=== PATIENT | male | born 1945 | race Caucasian/White ===

== ENCOUNTER 2023-10-15 16:14 | Inpatient (IN) | payer OTHER, MEDICARE ==
--- NOTE | 2023-10-15 17:06 | ED ---
General Adult HPI - General Source: patient Mode of arrival: ambulatory Limitations: no limitations <Lorena Ramos - Last Filed: 10/15/23 17:05> <Ryan Garcia - Last Filed: 10/15/23 23:57> - General Chief complaint: Recheck/Abnormal Lab/Rx Stated complaint: Rectal pain Time Seen by Provider: 10/15/23 17:05 - History of Present Illness Initial comments: The patient is a 77-year-old gentleman who presents to emergency room with complaint of rectal pain. Patient denies any known hemorrhoids. Denies any rectal bleeding. (Lorena Ramos) 77-year-old male presenting to the ED with a chief complaint of rectal pain. Patient states that his head pain around his rectum for the past 2 days. Since onset, states worsening in severity. Denies urinary symptoms. Denies changes in bowel habits. Denies abdominal pain. No fever or chills. No chest pain or shortness of breath. No other complaints. (Ryan Garcia) - Related Data Allergies Allergy/AdvReac Type Severity Reaction Status Date / Time No Known Allergies Allergy Verified 10/15/23 16:42 Review of Systems ROS Other: All systems not noted in ROS Statement are negative. <Lorena Ramos - Last Filed: 10/15/23 17:05> ROS Other: All systems not noted in ROS Statement are negative. <Ryan Garcia - Last Filed: 10/15/23 23:57> ROS Statement: Those systems with pertinent positive or pertinent negative responses have been documented in the HPI. Past Medical History Past Medical History: Hypertension, Myocardial Infarction ([place]) Additional Past Medical History / Comment(s): high cholestrol, GI issues History of Any Multi-Drug Resistant Organisms: None Reported Past Surgical History: Orthopedic Surgery Additional Past Surgical History / Comment(s): Cardiac Bypass Past Psychological History: No Psychological Hx Reported Smoking Status: Never smoker Past Alcohol Use History: None Reported Past Drug Use History: None Reported <Lorena Ramos - Last Filed: 10/15/23 17:05> General Exam Limitations: no limitations <Lorena Ramos - Last Filed: 10/15/23 17:05> General appearance: alert, in no apparent distress Eye exam: Present: normal appearance Neck exam: Present: normal inspection Respiratory exam: Present: normal lung sounds bilaterally Cardiovascular Exam: Present: regular rate, normal rhythm GI/Abdominal exam: Present: soft Rectal exam: Present: other (Perianal abscess) Back exam: Present: normal inspection Neurological exam: Present: alert, oriented X3 Skin exam: Present: warm, dry <Ryan Garcia - Last Filed: 10/15/23 23:57> - General Exam Comments Initial Comments: Visual Physical Exam Vital signs reviewed General: Well-appearing, nontoxic, no acute distress. Head: Normocephalic, atraumatic Eyes: PERRLA, EOMI ENT: Airway patent Chest: Nonlabored breathing Skin: No visual rash, normal skin tone Neuro: Alert and oriented 3 Musculoskeletal: No gross abnormalities (Lorena Ramos) Course Vital Signs 10/15/23 16:38 Temperature 97.7 F Pulse Rate 103 H Respiratory 16 Rate Blood Pressure 160/87 O2 Sat by Pulse 98 Oximetry Procedures - Incision & Drainage Consent Obtained: verbal consent Site: buttock Anesthetic Used: lidocaine 1%, with epi Amount (mLs): 3 I&D Cleaning Method: Chloroprep Sterile Field Used?: Yes Scalpel Used: #11 Irrigation Performed?: Yes I&D Drainage Obtained: Blood Culture Obtained?: Yes Patient Tolerated Procedure: well, no complications <Ryan Garcia - Last Filed: 10/15/23 23:57> Medical Decision Making <Lorena Ramos - Last Filed: 10/15/23 17:05> - Lab Data Result diagrams: 10/15/23 17:06 10/15/23 17:06 <Ryan Garcia - Last Filed: 10/15/23 23:57> - Medical Decision Making Quick note portion completed by myself, Lorena Ramos PA-C (Lorena Ramos) Was pt. sent in by a medical professional or institution ([facility], FOUNDER / CEO, urgent care, hospital, or [place] health care facility...) When possible be specific @ -No Did you speak to anyone other than the patient for history (EMS, parent, family, police, friend...)? What history was obtained from this source @ -No Did you review nursing and triage notes (agree or disagree)? Why? @ -I reviewed and agree with nursing and triage notes Were old charts reviewed (outside hosp., previous admission, EMS record, old EKG, old radiological studies, urgent care reports/EKG's, [place] health care facility records)? Report findings @ -No old charts were reviewed Differential Diagnosis (chest pain, altered mental status, abdominal pain women, abdominal pain men, vaginal bleeding, weakness, fever, dyspnea, syncope, headache, dizziness, GI bleed, back pain, seizure, CVA, palpatations, mental health, musculoskeletal)? @ -Differential Fever: Pneumonia, viral URI, endocarditis, myocarditis, pericarditis, otitis, sinusitis , peritonsillar Abscess, retropharyngeal Abscess, epiglottitis, peritonitis, appendicitis, Ninfa cystitis, diverticulitis, hepatitis, colitis, UTI, PID, TOA, pyelonephritis, prostatitis, epididymitis, meningitis, encephalitis, pulmonary embolism, CVA, thyroid storm, pancreatitis, adrenal crisis, cavernous sinus thrombosis, this is not meant to be an all-inclusive list. EKG interpreted by me (3pts min.). @ -As above X-rays interpreted by me (1pt min.). @ -None done CT interpreted by me (1pt min.). @ -CT abdomen and pelvis revealed findings consistent with abscess in the region of the lower rectum/anus without any other acute findings. U/S interpreted by me (1pt. min.). @ -None done What testing was considered but not performed or refused? (CT, X-rays, U/S, labs)? Why? @ -None What meds were considered but not given or refused? Why? @ -None Did you discuss the management of the patient with other professionals (professionals i.e. , PA, FOUNDER / CEO, lab, RT, psych nurse, social worker psychiatric, pot puller, teacher, marketing officer, returned case inspector)? Give summary @ -Case discussed with Dr. Pereira, accepts admission with consult to surgery. Case discussed with Dr. Hill rises local anesthesia and lancing bedside. Will be on consult. Was smoking cessation discussed for >3mins.? @ -No Was critical care preformed (if so, how long)? @ -Yes, 15 minutes Were there social determinants of health that impacted care today? How? (Ho melessness, low income, unemployed, alcoholism, drug addiction, transportation, low edu. Level, literacy, decrease access to med. care, residential, rehab)? @ -No Was there de-escalation of care discussed even if they declined (Discuss DNR or withdrawal of care, Hospice)? DNR status @ -No What co-morbidities impacted this encounter? (DM, HTN, Smoking, COPD, CAD, Cancer, CVA, ARF, Chemo, Hep., AIDS, mental health diagnosis, sleep apnea, morbid obesity)? @ -None Was patient admitted / discharged? Hospital course, mention meds given and route, prescriptions, significant lab abnormalities, going to OR and other pertinent info. @ -Admission 77-year-old male presenting to the ED with chief complaint of rectal pain for the last 2 days. Exam shows perianal abscess approximately 2 cm. Laboratory studies reviewed. CBC significant for elevated white blood cell count at 18.3. Neutrophils at 14.7. History panel unremarkable. Troponin less than 0.012. Lactic acid 1.2. UA unremarkable. CT abdomen and pelvis with contrast showed mild soft tissue thickening asymmetric to the left in the region of the lower rectum otherwise no acute findings. This was lanced the bedside. Culture obtained. Noted to be tachycardic with a white count of 18.3. Patient does meet sepsis criteria. Calculated ideal body weight 75 kg, adjusted body weight 81 kg. Provided 2 L bolus and started on maintenance fluids. Cultures obtained. Initiated IV antibiotics in the ED. Patient will be admitted to medicine with consult to surgery. Undiagnosed new problem with uncertain prognosis? @ -No Drug Therapy requiring intensive monitoring for toxicity (Heparin, Nitro, Insulin, Cardizem)? @ -No Were any procedures done? @ -Yes Diagnosis/symptom? @ -Perianal abscess, sepsis Acute, or Chronic, or Acute on Chronic? @ -Acute Uncomplicated (without systemic symptoms) or Complicated (systemic symptoms)? @ -Complicated Side effects of treatment? @ -No Exacerbation, Progression, or Severe Exacerbation? @ -No Poses a threat to life or bodily function? How? (Chest pain, [place], [place], pneumonia, PE, COPD, DKA, ARF, appy, cholecystitis, CVA, Diverticulitis, Homicidal, Suicidal, threat to staff... and all critical care pts) @ -Yes, Sepsis (Ryan Garcia) - Lab Data Lab Results 10/15/23 10/15/23 10/15/23 Range/Units 17:06 17:06 17:06 WBC 18.3 H (3.8-10.6) k/uL RBC 5.10 (4.30-5.90) m/uL Hgb 15.5 (13.0-17.5) gm/dL Hct 45.7 (39.0-53.0) % MCV 89.6 (80.0-100.0) fL MCH 30.4 (25.0-35.0) pg MCHC 33.9 (31.0-37.0) g/dL RDW 12.5 (11.5-15.5) % Plt Count 251 (150-450) k/uL MPV 8.2 Neutrophils % 80 % Lymphocytes % 10 % Monocytes % 7 % Eosinophils % 1 % Basophils % 0 % Neutrophils # 14.7 H (1.3-7.7) k/uL Lymphocytes # 1.9 (1.0-4.8) k/uL Monocytes # 1.3 H (0-1.0) k/uL Eosinophils # 0.2 (0-0.7) k/uL Basophils # 0.1 (0-0.2) k/uL PT (10.0-12.5) sec INR (<1.2) APTT (22.0-30.0) sec Sodium 135 L (137-145) mmol/L Potassium 3.6 (3.5-5.1) mmol/L Chloride 98 (98-107) mmol/L Carbon Dioxide 20 L (22-30) mmol/L Anion Gap 17 mmol/L BUN 9 (9-20) mg/dL Creatinine 1.03 (0.66-1.25) mg/dL Est GFR (CKD-EPI)AfAm 82 (>60 ml/min/1.73 sqM) Est GFR (CKD-EPI)NonAf 71 (>60 ml/min/1.73 sqM) Glucose 97 (74-99) mg/dL Plasma Lactic Acid [place] (0.7-2.0) mmol/L Calcium 9.2 (8.4-10.2) mg/dL Total Bilirubin 1.5 H (0.2-1.3) mg/dL AST 31 (17-59) U/L ALT 43 (4-49) U/L Alkaline Phosphatase 70 (38-126) U/L Troponin I (0.000-0.034) ng/mL Total Protein 7.6 (6.3-8.2) g/dL Albumin 4.6 (3.5-5.0) g/dL Urine Color Yellow Urine Appearance Clear (Clear) Urine pH 5.5 (5.0-8.0) Ur Specific [place] 1.021 (1.001-1.035) Urine Protein 1+ H (Negative) Urine Glucose (UA) Negative (Negative) Urine Ketones 1+ H (Negative) Urine Blood Negative (Negative) Urine Nitrite Negative (Negative) Urine Bilirubin Negative (Negative) Urine Urobilinogen 2.0 (<2.0) mg/dL Ur Leukocyte Esterase Negative (Negative) Urine RBC 1 (0-5) /hpf Urine WBC 1 (0-5) /hpf Hyaline Casts 1 (0-2) /lpf Urine Mucus Moderate H (None) /hpf 10/15/23 10/15/23 10/15/23 Range/Units 21:23 21:23 21:23 WBC (3.8-10.6) k/uL RBC (4.30-5.90) m/uL Hgb (13.0-17.5) gm/dL Hct (39.0-53.0) % MCV (80.0-100.0) fL MCH (25.0-35.0) pg MCHC (31.0-37.0) g/dL RDW (11.5-15.5) % Plt Count (150-450) k/uL MPV Neutrophils % % Lymphocytes % % Monocytes % % Eosinophils % % Basophils % % Neutrophils # (1.3-7.7) k/uL Lymphocytes # (1.0-4.8) k/uL Monocytes # (0-1.0) k/uL Eosinophils # (0-0.7) k/uL Basophils # (0-0.2) k/uL PT 10.9 (10.0-12.5) sec INR 1.0 (<1.2) APTT 22.7 (22.0-30.0) sec Sodium (137-145) mmol/L Potassium (3.5-5.1) mmol/L Chloride (98-107) mmol/L Carbon Dioxide (22-30) mmol/L Anion Gap mmol/L BUN (9-20) mg/dL Creatinine (0.66-1.25) mg/dL Est GFR (CKD-EPI)AfAm (>60 ml/min/1.73 sqM) Est GFR (CKD-EPI)NonAf (>60 ml/min/1.73 sqM) Glucose (74-99) mg/dL Plasma Lactic Acid [place] 1.2 (0.7-2.0) mmol/L Calcium (8.4-10.2) mg/dL Total Bilirubin (0.2-1.3) mg/dL AST (17-59) U/L ALT (4-49) U/L Alkaline Phosphatase (38-126) U/L Troponin I <0.012 (0.000-0.034) ng/mL Total Protein (6.3-8.2) g/dL Albumin (3.5-5.0) g/dL Urine Color Urine Appearance (Clear) Urine pH (5.0-8.0) Ur Specific [place] (1.001-1.035) Urine Protein (Negative) Urine Glucose (UA) (Negative) Urine Ketones (Negative) Urine Blood (Negative) Urine Nitrite (Negative) Urine Bilirubin (Negative) Urine Urobilinogen (<2.0) mg/dL Ur Leukocyte Esterase (Negative) Urine RBC (0-5) /hpf Urine WBC (0-5) /hpf Hyaline Casts (0-2) /lpf Urine Mucus (None) /hpf - EKG Data EKG Comments: AG shows a sinus rhythm with nonspecific ST and T-wave changes at 87 bpm. KS 143, QRS 146, QT/QTc 375/419. (Ryan Garcia) Critical Care Time Critical Care Time: Yes Total Critical Care Time: 15 <Ryan Garcia - Last Filed: 10/15/23 23:57> Disposition <Lorena Ramos - Last Filed: 10/15/23 17:05> <Ryan Garcia - Last Filed: 10/15/23 23:57> Clinical Impression: Perianal abscess Dis[facility] Condition: Good Referrals: None,Stated [Primary Care Provider] - 1-2 days
[2023-10-15 17:51] LABS: Basophils # (A) 0.1 k/uL (0-0.2); Basophils % (A) 0 %; Eosinophils # (A) 0.2 k/uL (0-0.7); Eosinophils % (A) 1 %; HCT 45.7 % (39.0-53.0); HGB 15.5 gm/dL (13.0-17.5); Lymphocytes # (A) 1.9 k/uL (1.0-4.8); Lymphocytes % (A) 10 %; MCH 30.4 pg (25.0-35.0); MCHC 33.9 g/dL (31.0-37.0); MCV 89.6 fL (80.0-100.0); Mean Platelet Volume 8.2; Monocytes # (A) 1.3 k/uL (0-1.0); Monocytes % (A) 7 %; Neutrophils # (A) 14.7 k/uL (1.3-7.7); Neutrophils % (A) 80 %; Platelet Count 251 k/uL (150-450); RDW 12.5 % (11.5-15.5); WBC 18.3 k/uL (3.8-10.6)
[2023-10-15 17:57] LABS: Appearance,Urine Clear (Clear); Bilirubin,Urine Negative (Negative); Blood,Urine Negative (Negative); Color,Urine Yellow; Glucose,Urine (UA) Negative (Negative); Hyaline Casts,Urine 1 /lpf (0-2); Ketones,Urine 1+ (Negative); Leukocyte Esterase,Urine Negative (Negative); Mucus,Urine Moderate /hpf; Nitrite,Urine Negative (Negative); PH, Urine 5.5 (5.0-8.0); Protein,Urine 1+ (Negative); RBC,Urine 1 /hpf (0-5); Specific Gravity,Urine 1.021 (1.001-1.035); WBC,Urine 1 /hpf (0-5)
[2023-10-15 18:06] LABS: ALT 43 U/L (4-49); AST 31 U/L (17-59); African American GFR (CKD) 82 (>60 ml/min/1.73 sqM); Albumin 4.6 g/dL (3.5-5.0); Alkaline Phosphatase 70 U/L (38-126); Anion Gap 17 mmol/L; Blood Urea Nitrogen 9 mg/dL (9-20); Calcium 9.2 mg/dL (8.4-10.2); Carbon Dioxide 20 mmol/L (22-30); Chloride 98 mmol/L (98-107); Glucose 97 mg/dL (74-99); Non-African American GFR(CKD) 71 (>60 ml/min/1.73 sqM); Potassium 3.6 mmol/L (3.5-5.1); Sodium 135 mmol/L (137-145); Total Bilirubin 1.5 mg/dL (0.2-1.3); Total Protein 7.6 g/dL (6.3-8.2)
[2023-10-15] MEDS ORDERED: SODIUM CHLORIDE 0.9% 2,000 ML IV STA (21:08)
--- NOTE | 2023-10-15 21:32 | CT ---
EXAMINATION TYPE: CT abdomen pelvis w con CT DLP: 1287.1 mGycm, Automated exposure control for dose reduction was used. DATE OF EXAM: 10/15/2023 6:49 PM COMPARISON: CLINICAL INDICATION:Male, 77 years old with history of rectal pain; Rectal pain x 3 days TECHNIQUE: Axial CT of the abdomen and pelvis. Sagittal and coronal reformats were created on a [employer] workstation. Contrast used:100 ml mL of Isovue 300 with IV Contrast, (none if empty) Oral contrast used: without Oral Contrast (none if empty) FINDINGS: LOWER CHEST: Mild/moderate cardiomegaly. Moderate to heavy calcifications of the coronary arteries. P rominent pericardial fat without pericardial effusion. Slightly pericardial fat insinuates along the left inferior oblique fissure. Mild bibasilar subsegmental atelectasis without focal consolidations s een. No pleural effusion. Mildly prominent subpleural fat. ABDOMEN LIVER: Unremarkable GALLBLADDER AND BILE DUCTS: Moderate amount of clustered small gallstones. No gallbladder distention or inflammation. Biliary tree is nondilated. Portal veins are enhancing. Splenic vein is enhancing. PANCREAS: Unremarkable. SPLEEN: Unremarkable. ADRENAL GLANDS: Unremarkable. KIDNEYS AND URETERS: Nonspecific mild bilateral perinephric stranding, could be chronic. Kidneys enha nce symmetrically. No hydronephrosis. Small eccentric cyst from the anterior right kidney upper pole. No visible calculi. PELVIS BLADDER: Bladder is incompletely filled and shows mild generally thickened appearance of its wall. Th e base of the bladder is indented by the enlarged prostate, and it is noted that most of the bladder including the dome extends posteriorly rather than anteriorly which is usual. REPRODUCTIVE: Prostate is enlarged measuring 6 cm transverse and indents the base of the bladder. ABDOMEN & PELVIS STOMACH AND BOWEL: Moderate sized hiatal hernia. The stomach and bowel are nondistended, no evidence of an obstruction. Appendix is not identified with certainty, however there is no inflammatory proces s seen in the RLQ. Moderate stool throughout the colon. Scattered diverticula. Some segments of colon are nondistended and not well assessed. The colon appears redundant, limiting evaluation. No coloni c foreign body is identified. The upper rectum is unremarkable. Inferiorly towards the anus there is the suggestion of some asymmetric soft tissue thickening on the left which might suggest inflammation without discrete fluid collection seen. PERITONEUM/RETROPERITONEUM: No evidence of pneumoperitoneum or free fluid. VASCULATURE: Moderate atherosclerotic calcifications are present throughout the abdominal aorta and i ts branches. No evidence of aortic aneurysm. LYMPH NODES: No gross evidence for lymphadenopathy. SOFT TISSUE/ABDOMINAL WALL: Small to moderate-sized bilateral fat-containing inguinal hernias. Small umbilical region hernia containing fat. MUSCULOSKELETAL: No acute osseous abnormalities. Partially seen sternotomy deformity and wires. The l ower rib cage appears intact as seen. Chronic deformities of the right L1-L5 transverse processes, wi th bony hypertrophy causing bridging between the right L2 and L3 transverse processes, suggestive of sequela remote trauma. Moderate to severe disc degeneration changes are present throughout the thorac olumbar spine. This appears greatest at the L5-S1 level where there is a 12 mm of anterolisthesis L5 on S1, which appears degenerative without discrete pars defects seen. This results in at least modera te narrowing of the spinal canal and neural foramina. Degenerative changes L4-L5 results in moderate canal and neural foraminal stenoses. Farther cranially, milder stenoses are seen. Pelvis appears inta ct. Mild/moderate degenerative changes of the SI joints. Sacrum is intact. Mild degenerative changes of the hips without evidence of fracture or dislocation. IMPRESSION: 1. Mild soft tissue thickening suggested, asymmetric to the left in the region of the lower rectum/a nus, could represent inflammatory or infectious process. 2. Otherwise no definite acute abnormality in the abdomen or pelvis is identified. 3. Other chronic and likely incidental findings, as described above.
[2023-10-15] MEDS ORDERED: KETOROLAC 15 MG/ML 1 ML VIAL IVP STA (21:36)
[2023-10-15 22:21] LABS: Partial Thromboplastin Time 22.7 sec (22.0-30.0); Prothrombin Time 10.9 sec (10.0-12.5)
[2023-10-15] MEDS ORDERED: LIDOCAINE 1%-EPI 1:100,000 50 ML VIAL SQ STA (22:37)
[2023-10-15] MEDS ORDERED: MORPHINE SULFATE 4 MG/ML SYRINGE IVP STA (22:45)
[2023-10-15] MEDS ORDERED: DIPH,PERTUS(ACELL)TETVAC-LF 0.5 ML VIAL IM ONE (22:55)
[2023-10-16] MEDS ORDERED: HYDROmorphone 0.5 MG/0.5 ML SYRINGE IVP PRN (00:16)
[2023-10-16] MEDS ORDERED: ACETAMINOPHEN TAB 325 MG TAB PO PRN (00:16)
[2023-10-16] MEDS ORDERED: NALOXONE 0.4 MG/ML 1 ML VIAL IV PRN ×2 (00:16→01:08)
--- NOTE | 2023-10-16 01:23 | P.HPIM ---
History of Present Illness H&P Date: 10/16/23 Chief Complaint: anal pain 77-year-old gentleman with history of CVA, CAD status post bypass, hypertension, IBS constipation type who presents to emergency room with complain t of rectal pain. Patient denies any known hemorrhoids. He has history of irritable bowel syndrome, constipation type and takes lubiprostone and bisacodyl to induce a BM. Due to these medications he gets watery stools on a daily basis. Denies any rectal bleeding. Denies abdominal pain, nausea or vomiting. No fever or chills. No chest pain or shortness of breath. No other complaints. He was found to have a leukocytosis of 18,000 emergency department, he was tachycardic as well as heart rate over 100. CT of the abdomen and pelvis showed mild soft tissue thickening left of the lower rectal/anal areas. He was subsequently admitted for further evaluation and management. Review of Systems Complete review of system performed, pertinent positives per HPI, otherwise negative Past Medical History Past Medical History: Hypertension, Myocardial Infarction ([place]) Additional Past Medical History / Comment(s): high cholestrol, GI issues History of Any Multi-Drug Resistant Organisms: None Reported Past Surgical History: Orthopedic Surgery Additional Past Surgical History / Comment(s): Cardiac Bypass Past Psychological History: No Psychological Hx Reported Smoking Status: Never smoker Past Alcohol Use History: None Reported Past Drug Use History: None Reported Medications and Allergies Allergies Allergy/AdvReac Type Severity Reaction Status Date / Time No Known Allergies Allergy Verified 10/15/23 16:42 Physical Exam Vitals: Vital Signs Temp Pulse Resp BP Pulse Ox 10/15/23 16:38 97.7 F 103 H 16 160/87 98 Intake and Output 10/15/23 10/15/23 10/16/23 14:59 22:59 06:59 Other: Weight 90.718 kg Constitutional: No acute distress, conversant, pleasant Eyes:Anicteric sclerae, moist conjunctiva, no lid-lag, PERRLA, ENMT: Oropharynx clear, no erythema, exudates Neck: Supple, FROM, no masses, or JVD, No carotid bruits, No thyromegaly Lungs: Clear to auscultation, Clear to percussion, Normal respiratory effort, no accessory muscle use Cardiovascular: Heart regular in rate and rhythm, No murmurs, gallops, or rubs, No peripheral edema Abdominal: Soft, Nontender, no guarding, rebound or rigidity, Normoactive bowel sounds, No hepatomegaly, No splenomegaly, No palpable mass . There is perianal swelling and erythema, tender to palpation. Skin: Normal temperature, tone, texture, turgor, no induration, No subcutaneous nodules, No rash, lesions, No ulcers Extremities: No digital cyanosis, No clubbing, Pedal pulses intact and symmetrical, Radial pulses intact and symmetrical, No calf tenderness Psychiatric: Alert and oriented to person, place and time, appropriate affect, intact judgement Neuro: Muscles Strength 5/5 in all 4 extremities, Sensation to light touch grossly present throughout, Cranial nerves II-XII grossly intact, no focal sensory deficits Results CBC & Chem 7: 10/15/23 17:06 10/15/23 17:06 Labs: Abnormal Lab Results - Last 24 Hours (Table) 10/15/23 10/15/23 10/15/23 Range/Units 17:06 17:06 17:06 WBC 18.3 H (3.8-10.6) k/uL Neutrophils # 14.7 H (1.3-7.7) k/uL Monocytes # 1.3 H (0-1.0) k/uL Sodium 135 L (137-145) mmol/L Carbon Dioxide 20 L (22-30) mmol/L Total Bilirubin 1.5 H (0.2-1.3) mg/dL Urine Protein 1+ H (Negative) Urine Ketones 1+ H (Negative) Urine Mucus Moderate H (None) /hpf Assessment and Plan Plan: Sepsis Perianal abscess -IV Fluids -Zosyn -Blood cultures -Discussed with the emergency physician and general surgery, emergency physician will do an I&D in the ER. Chronic History of hypertension History of CAD History of IBS, constipation type All stable Resume meds Admit to inpatient, expected length of stay more than 2 midnights
[2023-10-16] MEDS: PIPERACILLIN-TAZOBACTAM 3.375 GM in SODIUM CHLORIDE 0.9% 100 ML IVPB SCH ×3 (02:51→16:33)
[2023-10-16] MEDS: SODIUM CHLORIDE 0.9% 1,000 ML IV SCH ×2 (02:53→16:32)
[2023-10-16 07:11] LABS: Glucose,Whole Blood 89 mg/dL (70-110)
--- NOTE | 2023-10-16 10:33 | P.GSCN ---
History of Present Illness Consult date: 10/16/23 History of present illness: CHIEF COMPLAINT: Rectal pain HISTORY OF PRESENT ILLNESS: This is a 77-year-old male who presented to hospital with complaints of rectal pain 6 days. He denies any prior history of abscesses. Denies any history of diabetes. He had a computed tomography scan had shown soft tissue thickening suggested, asymmetric to the left in the region of the lower rectum/anus could represent inflammatory or infectious changes. Patient had an I&D in the ER by the ER physician. Drainage was bloody per ER report. Patient reports that the pain has decreased. He has been tachycardic with elevated white count. Currently on antibiotics. PAST MEDICAL HISTORY: Hypertension, Myocardial Infarction (CT), hyperlipidemia PAST SURGICAL HISTORY: CABG MEDICATIONS: See below ALLERGIES: See below SOCIAL HISTORY: No illicit drug use. REVIEW OF SYSTEMS: CONSTITUTIONAL: Denies fever or chills. HEENT: Denies blurred vision, vision changes, or eye pain. Denies hemoptysis CARDIOVASCULAR: Denies chest pain or pressure. RESPIRATORY: No shortness of breath. GASTROINTESTINAL: See HPI for pertinent findings HEMATOLOGIC: Denies bleeding disorders. GENITOURINARY: Denies any blood in urine or increased urinary frequency. SKIN: Denies pruitis. Denies rash. PHYSICAL EXAM: VITAL SIGNS: Reviewed GENERAL: Well-developed in no acute distress. HEENT: No sclera icterus. Extraocular movements grossly intact. Moist buccal mucosa. Head is atraumatic, normocephalic. No nasal drainage. ABDOMEN: Soft. Nondistended nontender NEUROLOGIC: Alert and oriented. Cranial nerves II through XII grossly intact. Skin: Left side of the rectum on the left cleft of buttocks area of induration with mild tenderness to palpation. Erythema noted Incision noted with minimal drainage. Bloody drainage noted on the dressing. LABORATORY DATA: WBC 18.3 Hgb 15.5 platelets 251 Sodium 135 potassium 3.6 creatinine 1.03 Lactic acid 1.2 Glucose 97 wound culture pending IMAGING: Computed tomography scan abdomen and pelvis reports mild soft tissue thickening suggested, asymmetric to the left in the region of the lower rectum/anus could represent inflammatory or infectious process. Otherwise no acute abnormality in the abdomen or pelvis. ASSESSMENT: 1. Perianal abscess status post I&D by ER physician PLAN: -No surgical intervention planned -Continue antibiotics -Encouraged patient to shower daily -Apply warm compresses to area Physician Manager Case note has been reviewed by physician. Signing provider agrees with the documented findings, assessment, and plan of care. Past Medical History Past Medical History: Hypertension, Myocardial Infarction (CT) Additional Past Medical History / Comment(s): high cholestrol, GI issues History of Any Multi-Drug Resistant Organisms: None Reported Past Surgical History: Orthopedic Surgery Additional Past Surgical History / Comment(s): Cardiac Bypass Past Anesthesia/Blood Transfusion Reactions: No Reported Reaction Past Psychological History: No Psychological Hx Reported Smoking Status: Never smoker Past Alcohol Use History: None Reported Past Drug Use History: None Reported Medications and Allergies Home Medications Medication Instructions Recorded Confirmed Type Aspirin EC [Ecotrin Low Dose] 81 mg PO DAILY@10/16/23 10/16/23 History Clopidogrel [Plavix] 75 mg PO DAILY@10/16/23 10/16/23 History Dorzolamide 2% [Trusopt 2%] 1 drop RIGHT EYE BID@0000,1200 10/16/23 10/16/23 History Latanoprost [Latanoprost 0.005%] 1 drop BOTH EYES DAILY@10/16/23 10/16/23 History Losartan [Cozaar] 50 mg PO DAILY@1200 10/16/23 10/16/23 History Lubiprostone [Amitiza] 24 mcg PO BID@0000,1200 10/16/23 10/16/23 History Metoprolol Succinate (ER) [Toprol 50 mg PO DAILY@10/16/23 10/16/23 History Xl] Omeprazole [PriLOSEC] 20 mg PO BID@1200,0000 10/16/23 10/16/23 History Rosuvastatin [Crestor] 5 mg PO DAILY@1200 10/16/23 10/16/23 History Simethicone 40 mg/0.6 ml Drops 40 mg PO QID PRN 10/16/23 10/16/23 History [Mylicon Drops] bisacodyL [Dulcolax] 10 mg PO DAILY@10/16/23 10/16/23 History busPIRone HCl [Buspar] 10 mg PO TID@0000,1200,1800 10/16/23 10/16/23 History Allergies Allergy/AdvReac Type Severity Reaction Status Date / Time atorvastatin [From Lipitor] AdvReac joint pain Verified 10/16/23 07:26 pravastatin [From Pravachol] AdvReac Diarrhea Verified 10/16/23 07:26 Surgical - Exam Vital Signs Temp Pulse Resp BP Pulse Ox 97.7 F 103 H 16 160/87 98 10/15/23 16:38 10/15/23 16:38 10/15/23 16:38 10/15/23 16:38 10/15/23 16:38 Results - Labs 10/15/23 17:06 10/15/23 17:06 Abnormal Lab Results - Last 24 Hours (Table) 10/15/23 10/15/23 10/15/23 Range/Units 17:06 17:06 17:06 WBC 18.3 H (3.8-10.6) k/uL Neutrophils # 14.7 H (1.3-7.7) k/uL Monocytes # 1.3 H (0-1.0) k/uL Sodium 135 L (137-145) mmol/L Carbon Dioxide 20 L (22-30) mmol/L Total Bilirubin 1.5 H (0.2-1.3) mg/dL Urine Protein 1+ H (Negative) Urine Ketones 1+ H (Negative) Urine Mucus Moderate H (None) /hpf Diabetes panel 10/15/23 Range/Units 17:06 Sodium 135 L (137-145) mmol/L Potassium 3.6 (3.5-5.1) mmol/L Chloride 98 (98-107) mmol/L Carbon Dioxide 20 L (22-30) mmol/L BUN 9 (9-20) mg/dL Creatinine 1.03 (0.66-1.25) mg/dL Glucose 97 (74-99) mg/dL Calcium 9.2 (8.4-10.2) mg/dL AST 31 (17-59) U/L ALT 43 (4-49) U/L Alkaline Phosphatase 70 (38-126) U/L Total Protein 7.6 (6.3-8.2) g/dL Albumin 4.6 (3.5-5.0) g/dL Calcium panel 10/15/23 Range/Units 17:06 Calcium 9.2 (8.4-10.2) mg/dL Albumin 4.6 (3.5-5.0) g/dL Pituitary panel 10/15/23 Range/Units 17:06 Sodium 135 L (137-145) mmol/L Potassium 3.6 (3.5-5.1) mmol/L Chloride 98 (98-107) mmol/L Carbon Dioxide 20 L (22-30) mmol/L BUN 9 (9-20) mg/dL Creatinine 1.03 (0.66-1.25) mg/dL Glucose 97 (74-99) mg/dL Calcium 9.2 (8.4-10.2) mg/dL Adrenal panel 10/15/23 Range/Units 17:06 Sodium 135 L (137-145) mmol/L Potassium 3.6 (3.5-5.1) mmol/L Chloride 98 (98-107) mmol/L Carbon Dioxide 20 L (22-30) mmol/L BUN 9 (9-20) mg/dL Creatinine 1.03 (0.66-1.25) mg/dL Glucose 97 (74-99) mg/dL Calcium 9.2 (8.4-10.2) mg/dL Total Bilirubin 1.5 H (0.2-1.3) mg/dL AST 31 (17-59) U/L ALT 43 (4-49) U/L Alkaline Phosphatase 70 (38-126) U/L Total Protein 7.6 (6.3-8.2) g/dL Albumin 4.6 (3.5-5.0) g/dL
[2023-10-16] MEDS: HYDROmorphone 1 MG/ML 1 ML SYRINGE IVP PRN ×2 (16:33→20:44)
[2023-10-16] MEDS ORDERED: SIMETHICONE 40 MG/0.6 ML DROPS 2,000 MG/30 ML BOTTLE PO PRN (17:00)
[2023-10-16] MEDS: busPIRone HCl 10 MG TAB PO SCH (17:56)
[2023-10-17] MEDS: busPIRone HCl 10 MG TAB PO SCH ×4 (00:35→23:47)
[2023-10-17] MEDS: PANTOPRAZOLE 40 MG TABLET PO SCH ×3 (00:35→23:47)
[2023-10-17] MEDS: HYDROmorphone 1 MG/ML 1 ML SYRINGE IVP PRN ×7 (00:35→23:47)
[2023-10-17] MEDS: ASPIRIN 81 MG PO SCH ×2 (00:35→23:47)
[2023-10-17] MEDS: METOPROLOL SUCCINATE (ER) 50 MG TAB.ER.24H PO SCH ×2 (00:36→23:47)
[2023-10-17] MEDS: CLOPIDOGREL 75 MG TAB PO SCH ×2 (00:36→23:47)
[2023-10-17] MEDS: PIPERACILLIN-TAZOBACTAM 3.375 GM in SODIUM CHLORIDE 0.9% 100 ML IVPB SCH ×3 (00:38→17:23)
[2023-10-17] MEDS: DORZOLAMIDE HCL 2% DROPS 10 ML BTL RIGHT EYE SCH ×2 (00:38→12:27)
[2023-10-17] MEDS: LATANOPROST 0.005% OPHTH DROPS 2.5 ML BTL BOTH EYES SCH (00:38)
[2023-10-17] MEDS: LUBIPROSTONE 24 MCG PO SCH ×2 (00:51→12:28)
[2023-10-17] MEDS: SODIUM CHLORIDE 0.9% 1,000 ML IV SCH ×3 (00:51→14:22)
[2023-10-17 09:20] LABS: Basophils # (A) 0.05 X 10*3/uL (0.00-0.10); Basophils % (A) 0.4 %; Eosinophils # (A) 0.82 X 10*3/uL (0.04-0.35); Eosinophils % (A) 6.3 %; HCT 39.3 % (39.6-50.0); HGB 13.2 g/dL (13.0-17.0); MCH 30.1 pg (27.0-32.0); MCHC 33.6 g/dL (32.0-37.0); MCV 89.5 FL (80.0-97.0); Mean Platelet Volume 10.7 FL (9.5-12.2); Monocytes # (A) 1.33 X 10*3/uL (0.20-1.00); Monocytes % (A) 10.1 %; NRBC Per 100 WBC 0 X 10*3/uL (0.00-0.01); Neutrophils # (A) 9.18 X 10*3/uL (1.80-7.70); Neutrophils % (A) 69.9 %; Platelet Count 250 X 10*3/uL (140-440); RBC 4.39 X 10*6/uL (4.40-5.60); RDW 12.5 % (11.5-14.5); WBC 13.12 X 10*3/uL (4.50-10.00)
[2023-10-17 10:12] LABS: HCT 38.8 % (39.0-53.0); HGB 13.1 gm/dL (13.0-17.5); MCH 29.9 pg (25.0-35.0); MCHC 33.7 g/dL (31.0-37.0); MCV 88.8 fL (80.0-100.0); Mean Platelet Volume 8.8; Platelet Count 227 k/uL (150-450); RBC 4.37 m/uL (4.30-5.90); RDW 12.8 % (11.5-15.5); WBC 12.3 k/uL (3.8-10.6)
[2023-10-17 10:24] LABS: African American GFR (CKD) >90 (>60 ml/min/1.73 sqM); Anion Gap 12 mmol/L; Blood Urea Nitrogen 8 mg/dL (9-20); Calcium 8.3 mg/dL (8.4-10.2); Carbon Dioxide 22 mmol/L (22-30); Chloride 105 mmol/L (98-107); Glucose 113 mg/dL (74-99); Non-African American GFR(CKD) 82 (>60 ml/min/1.73 sqM); Potassium 3.5 mmol/L (3.5-5.1); Sodium 139 mmol/L (137-145)
--- NOTE | 2023-10-17 10:59 | P.PN ---
Subjective Progress Note Date: 10/17/23 (Surgery) Patient is status post drainage of perineal abscess. By emergency physician. He still has a lot of pain is uncomfortable. There is still induration in the area. If pain and induration continues, may need imaging to make sure there is no undrained collection. Continue antibiotics per primary team and infectious disease. Objective - Vital Signs Vital signs: Vital Signs Temp 98.3 F 10/17/23 07:32 Pulse 82 10/17/23 07:32 Resp 18 10/17/23 07:32 BP 119/67 10/17/23 07:32 Pulse Ox 94 L 10/17/23 07:32 FiO2 Intake & Output 10/16/23 10/17/23 10/17/23 18:59 06:59 18:59 Other: Voiding Method Toilet Toilet Urinal # Voids 1 1 - Labs CBC & Chem 7: 10/17/23 09:12 10/17/23 09:12 Labs: Abnormal Lab Results - Last 24 Hours (Table) 10/17/23 10/17/23 10/17/23 Range/Units 05:51 09:12 09:12 WBC 13.12 H 12.3 H (4.50-10.00) X 10*3/uL RBC 4.39 L (4.40-5.60) X 10*6/uL Hct 39.3 L 38.8 L (39.6-50.0) % Neutrophils # 9.18 H (1.80-7.70) X 10*3/uL Monocytes # 1.33 H (0.20-1.00) X 10*3/uL Eosinophils # 0.82 H (0.04-0.35) X 10*3/uL BUN 8 L (9-20) mg/dL Glucose 113 H (74-99) mg/dL Calcium 8.3 L (8.4-10.2) mg/dL Microbiology - Last 24 Hours (Table) 10/15/23 23:49 Gram Stain - Preliminary Buttock Wound Culture - Preliminary 10/15/23 21:23 Blood Culture - Preliminary Blood 10/15/23 21:23 Blood Culture - Preliminary Blood
[2023-10-17] MEDS: LOSARTAN 50 MG TAB PO SCH (12:26)
[2023-10-17] MEDS: ATORVASTATIN 10 MG TAB PO SCH (12:27)
--- NOTE | 2023-10-17 15:29 | P.PN ---
Subjective Progress Note Date: 10/17/23 77-year-old gentleman with history of CVA, CAD status post bypass, hypertension, IBS type who presents to emergency room with complaint of rectal pain. In the ED he underwent extensive evaluation. Tachycardic with HR in the 100s. CBC WBC 18.3. INR 1. CMP Na 135, bicarb 20, T. Bili 1.5. Troponin < 0.012. Lactic acid 1.2. UA negative LE or nitrite. EKG sinus rhythm. CT AP confirms perianal cellulitis. Patient is admitted for sepsis related to perirectal cellulitis. 10/17 Patient was seen and examined. He reports continued rectal pain and swelling. Currently on Zosyn 3.375g IV TID. Surgery on board. CBC WBC 12.3, Hct 38.8. BMP BUN 8, glu 113, Ca 8.3. BCx and WCx negative so far. General: non toxic, no distress, appears at stated age Derm: warm, dry Head: atraumatic, normocephalic, symmetric Eyes: EOMI, no lid lag, anicteric sclera Cardiovascular: S1S2 reg, no murmur Lungs: CTA bilateral, no rhonchi, no rales , no accessory muscle use Ext: no gross muscle atrophy, no edema, no contractures Neuro: no focal neuro deficits Psych: Alert, oriented, appropriate affect Based on my assessment of this patient, this patient meets a high complexity level of care. Patient has an acute diagnosis of sepsis due to perirectal cellulitis that poses a threat to life or bodily function. Sepsis related to perirectal cellulitis: Continue Zosyn 3.375g IV TID. Decrease NS to 20 cc/hr. Telemetry moitoring. Surgery on board. Chronic conditions: history of CVA, CAD status post bypass, hypertension, IBS CODE STATUS: FULL CODE. DVT Prophylaxis: Heparin SQ GI Prophylaxis: Protonix Designated medical POA if patient is not able to make medical decisions for themselves: I have reviewed the following benefits sales consultant notes: Surgery I have reviewed the results of the following tests: CBC, BMP, BCx, WCx I have ordered the following tests: I have discussed the care of this patient with the following independent historian: I have independently interpreted the following test below: I have discussed the management of this patient with the following physician: Objective - Vital Signs Vital signs: Vital Signs Temp 98.4 F 10/17/23 13:37 Pulse 76 10/17/23 13:37 Resp 16 10/17/23 13:37 BP 118/61 10/17/23 13:37 Pulse Ox 93 L 10/17/23 13:37 FiO2 Intake & Output 10/16/23 10/17/23 10/17/23 18:59 06:59 18:59 Other: Voiding Method Toilet Toilet Urinal # Voids 1 1 - Labs CBC & Chem 7: 10/17/23 09:12 10/17/23 09:12 Labs: Abnormal Lab Results - Last 24 Hours (Table) 10/17/23 10/17/23 10/17/23 Range/Units 05:51 09:12 09:12 WBC 13.12 H 12.3 H (4.50-10.00) X 10*3/uL RBC 4.39 L (4.40-5.60) X 10*6/uL Hct 39.3 L 38.8 L (39.6-50.0) % Neutrophils # 9.18 H (1.80-7.70) X 10*3/uL Monocytes # 1.33 H (0.20-1.00) X 10*3/uL Eosinophils # 0.82 H (0.04-0.35) X 10*3/uL BUN 8 L (9-20) mg/dL Glucose 113 H (74-99) mg/dL Calcium 8.3 L (8.4-10.2) mg/dL Microbiology - Last 24 Hours (Table) 10/15/23 23:49 Gram Stain - Preliminary Buttock Wound Culture - Preliminary 10/15/23 21:23 Blood Culture - Preliminary Blood 10/15/23 21:23 Blood Culture - Preliminary Blood
[2023-10-17] MEDS: HEPARIN SODIUM,PORCINE 5,000 UNIT/ML 1 ML VIAL SQ SCH (20:40)
[2023-10-18] MEDS: PIPERACILLIN-TAZOBACTAM 3.375 GM in SODIUM CHLORIDE 0.9% 100 ML IVPB SCH ×3 (00:16→17:15)
[2023-10-18] MEDS: SODIUM CHLORIDE 0.9% 1,000 ML IV SCH ×3 (00:18→21:49)
[2023-10-18] MEDS: DORZOLAMIDE HCL 2% DROPS 10 ML BTL RIGHT EYE SCH ×2 (00:18→13:17)
[2023-10-18] MEDS: LATANOPROST 0.005% OPHTH DROPS 2.5 ML BTL BOTH EYES SCH (00:18)
[2023-10-18] MEDS: LUBIPROSTONE 24 MCG PO SCH ×2 (00:18→13:16)
[2023-10-18] MEDS: HYDROmorphone 1 MG/ML 1 ML SYRINGE IVP PRN ×4 (04:12→15:53)
--- NOTE | 2023-10-18 07:43 | P.CONS ---
History of Present Illness - Reason for Consult Consult date: 10/17/23 - History of Present Illness Patient is a 77-year-old male with a past medical history pertinent for hypertension [place] presenting to the ER for evaluation of perirectal pain patient did have a history of hemorrhoids patient presented to hospital with perirectal pain for 2 days before presentation to the hospital patient was describing the pain to be sharp severe intensity without any radiation with associated swelling and pressure-like but denies having any drainage patient denies high-grade fever or any chills and no fever was recorded on presentation to the hospital patient was not tachycardic hypotensive or hypoxic he did have white count of 18.3 with a left shift creatinine 1.03 urine was negative patient did have a CT of abdominal pelvis mild soft tissue thickening suggested asymmetric to the left in the region of the lower rectum could represent inflammatory or infectious process no evidence of any abscess patient apparently did have a drainage procedure in the ER cultures has been obtained patient started on Zosyn infectious disease was consulted for further management of antibiotic therapy Past Medical History Past Medical History: Hypertension, Myocardial Infarction ([place]) Additional Past Medical History / Comment(s): high cholestrol, GI issues History of Any Multi-Drug Resistant Organisms: None Reported Past Surgical History: Orthopedic Surgery Additional Past Surgical History / Comment(s): Cardiac Bypass Past Anesthesia/Blood Transfusion Reactions: No Reported Reaction Past Psychological History: No Psychological Hx Reported Smoking Status: Never smoker Past Alcohol Use History: None Reported Past Drug Use History: None Reported Medications and Allergies Home Medications Medication Instructions Recorded Confirmed Type Aspirin EC [Ecotrin Low Dose] 81 mg PO DAILY@10/16/23 10/16/23 History Clopidogrel [Plavix] 75 mg PO DAILY@10/16/23 10/16/23 History Dorzolamide 2% [Trusopt 2%] 1 drop RIGHT EYE BID@0000,119910/16/23 10/16/23 History Latanoprost [Latanoprost 0.005%] 1 drop BOTH EYES DAILY@10/16/23 10/16/23 History Losartan [Cozaar] 50 mg PO DAILY@119910/16/23 10/16/23 History Lubiprostone [Amitiza] 24 mcg PO BID@0000,119910/16/23 10/16/23 History Metoprolol Succinate (ER) [Toprol 50 mg PO DAILY@0000 10/16/23 10/16/23 History Xl] Omeprazole [PriLOSEC] 20 mg PO BID@1200,0000 10/16/23 10/16/23 History Rosuvastatin [Crestor] 5 mg PO DAILY@1200 10/16/23 10/16/23 History Simethicone 40 mg/0.6 ml Drops 40 mg PO QID PRN 10/16/23 10/16/23 History [Mylicon Drops] bisacodyL [Dulcolax] 10 mg PO DAILY@0000 10/16/23 10/16/23 History busPIRone HCl [Buspar] 10 mg PO TID@0000,1200,1800 10/16/23 10/16/23 History Allergies Allergy/AdvReac Type Severity Reaction Status Date / Time atorvastatin [From Lipitor] AdvReac joint pain Verified 10/16/23 07:26 pravastatin [From Pravachol] AdvReac Diarrhea Verified 10/16/23 07:26 Physical Exam Vitals: Vital Signs Temp Pulse Resp BP Pulse Ox 10/17/23 07:32 98.3 F 82 18 119/67 94 L 10/17/23 00:46 98.7 F 101 H 16 146/84 10/16/23 20:00 98.7 F 93 18 127/67 97 10/16/23 12:10 99.4 F 81 17 113/61 96 Intake and Output 10/16/23 10/17/23 10/17/23 22:59 06:59 14:59 Other: Voiding Method Toilet Urinal # Voids 1 Results CBC & Chem 7: 10/17/23 09:12 10/17/23 09:12 Labs: Abnormal Lab Results - Last 24 Hours (Table) 10/17/23 Range/Units 05:51 WBC 13.12 H (4.50-10.00) X 10*3/uL RBC 4.39 L (4.40-5.60) X 10*6/uL Hct 39.3 L (39.6-50.0) % Neutrophils # 9.18 H (1.80-7.70) X 10*3/uL Monocytes # 1.33 H (0.20-1.00) X 10*3/uL Eosinophils # 0.82 H (0.04-0.35) X 10*3/uL Microbiology - Last 24 Hours (Table) 10/15/23 21:23 Blood Culture - Preliminary Blood 10/15/23 21:23 Blood Culture - Preliminary Blood 10/15/23 23:49 Gram Stain - Preliminary Buttock Assessment and Plan Plan: 1patient presented to hospital with perirectal pain started 2 days before presentation to the hospital in this patient did have elevated white count with abnormal CT abdominal pelvis soft tissue thickening to the left in the region of the perirectal area concerning for perirectal inflammation/abscess s/p drainage in the ER likely pathogen need to cover will be enteric gram-negative both aerobes and anaerobes 2we will keep the patient on Zosyn 3.375 g every 8 hours while waiting for the culture to finalize We will follow on clinical condition and cultures to further adjust medication if needed Thank you for this consultation we will follow the patient along with you Dictation was produced using [employer] dictation software. please excuse any grammatical, word or spelling errors. Time with Patient: Greater than 30
[2023-10-18] MEDS: HEPARIN SODIUM,PORCINE 5,000 UNIT/ML 1 ML VIAL SQ SCH ×2 (08:52→21:48)
[2023-10-18 09:53] LABS: Blood Urea Nitrogen 5.5 mg/dL (9.0-27.0); Calcium 8.9 mg/dL (8.7-10.3); Carbon Dioxide 26.9 mmol/L (21.6-31.8); Chloride 101 mmol/L (96-109); Glucose 104 mg/dL (70-110); Potassium 3.5 mmol/L (3.5-5.5); Sodium 138 mmol/L (135-145)
[2023-10-18 09:59] LABS: HCT 39.9 % (39.6-50.0); HGB 13.4 g/dL (13.0-17.0); MCH 29.7 pg (27.0-32.0); MCHC 33.6 g/dL (32.0-37.0); MCV 88.5 FL (80.0-97.0); Mean Platelet Volume 10.9 FL (9.5-12.2); NRBC Per 100 WBC 0 X 10*3/uL (0.00-0.01); Platelet Count 275 X 10*3/uL (140-440); RBC 4.51 X 10*6/uL (4.40-5.60); RDW 12.4 % (11.5-14.5); WBC 11.68 X 10*3/uL (4.50-10.00)
--- NOTE | 2023-10-18 11:06 | P.PN ---
Subjective Progress Note Date: 10/18/23 Patient's has complaints of perianal pain. He states he did have some drainage last night. On exam vital signs are stable. The perineum is still inflamed. Objective - Vital Signs Vital signs: Vital Signs Temp 98.3 F 10/18/23 07:31 Pulse 66 10/18/23 07:31 Resp 18 10/18/23 07:31 BP 120/57 10/18/23 07:31 Pulse Ox 97 10/18/23 07:31 FiO2 Intake & Output 10/17/23 10/18/23 10/18/23 18:59 06:59 18:59 Other: Voiding Method Toilet Urinal # Voids 1 - Labs CBC & Chem 7: 10/18/23 06:23 10/18/23 06:23 Labs: Abnormal Lab Results - Last 24 Hours (Table) 10/18/23 10/18/23 Range/Units 06:23 06:23 WBC 11.68 H (4.50-10.00) X 10*3/uL BUN 5.5 L (9.0-27.0) mg/dL BUN/Creatinine Ratio 5.50 L (12.00-20.00) Ratio Microbiology - Last 24 Hours (Table) 10/15/23 23:49 Gram Stain - Final Buttock Wound Culture - Final 10/15/23 21:23 Blood Culture - Preliminary Blood 10/15/23 21:23 Blood Culture - Preliminary Blood Assessment and Plan Plan: History of rectal abscess with drainage perform emergency. Patient on repeat CAT scan of the pelvis performed.
[2023-10-18] MEDS: IOPAMIDOL CONTRAST (ORAL USE) VIAL PO PRN ×2 (11:20→12:32)
--- NOTE | 2023-10-18 12:08 | P.PN ---
Subjective Progress Note Date: 10/18/23 77-year-old gentleman with history of CVA, CAD status post bypass, hypertension, IBS type who presents to emergency room with complaint of rectal pain. In the ED he underwent extensive evaluation. Tachycardic with HR in the 100s. CBC WBC 18.3. INR 1. CMP Na 135, bicarb 20, T. Bili 1.5. Troponin < 0.012. Lactic acid 1.2. UA negative LE or nitrite. EKG sinus rhythm. CT AP confirms perianal cellulitis. Patient is admitted for sepsis related to perirectal cellulitis. 10/17 Patient was seen and examined. He reports continued rectal pain and swelling. Currently on Zosyn 3.375g IV TID. Surgery on board. CBC WBC 12.3, Hct 38.8. BMP BUN 8, glu 113, Ca 8.3. BCx and WCx negative so far. 10/18 Patient was seen and examined. He reports some more drainage last night. Pain and swelling is still moderate. ID consulted, recommends following cultures. WCx negative. Surgery note reviewed, plans to repeat CT today. CBC WBC 11.68. BMP BUN 5.5. WCx is negative. General: non toxic, no distress, appears at stated age Derm: warm, dry Head: atraumatic, normocephalic, symmetric Eyes: EOMI, no lid lag, anicteric sclera Cardiovascular: S1S2 reg, no murmur Lungs: CTA bilateral, no rhonchi, no rales , no accessory muscle use Ext: no gross muscle atrophy, no edema, no contractures Neuro: no focal neuro deficits Psych: Alert, oriented, appropriate affect Based on my assessment of this patient, this patient meets a moderate complexity level of care. Patient has an acute diagnosis of sepsis due to perirectal cellulitis that poses a threat to life or bodily function. Sepsis related to perirectal cellulitis: Continue Zosyn 3.375g IV TID. Decrease NS to 20 cc/hr. Telemetry moitoring. Surgery and ID on board. Chronic conditions: history of CVA, CAD status post bypass, hypertension, IBS CODE STATUS: FULL CODE. DVT Prophylaxis: Heparin SQ GI Prophylaxis: Protonix Designated medical POA if patient is not able to make medical decisions for themselves: I have reviewed the following sales and leasing consultant notes: Surgery, ID note. I have reviewed the results of the following tests: CBC, BMP, BCx, WCx I have ordered the following tests: CBC, BMP I have discussed the care of this patient with the following independent historian: I have independently interpreted the following test below: I have discussed the management of this patient with the following physician: Objective - Vital Signs Vital signs: Vital Signs Temp 98.3 F 10/18/23 07:31 Pulse 66 10/18/23 07:31 Resp 18 10/18/23 07:31 BP 120/57 10/18/23 07:31 Pulse Ox 97 10/18/23 07:31 FiO2 Intake & Output 10/17/23 10/18/23 10/18/23 18:59 06:59 18:59 Other: Voiding Method Toilet Urinal # Voids 1 - Labs CBC & Chem 7: 10/18/23 06:23 10/18/23 06:23 Labs: Abnormal Lab Results - Last 24 Hours (Table) 10/17/23 10/17/23 Range/Units 09:12 09:12 WBC 12.3 H (3.8-10.6) k/uL Hct 38.8 L (39.0-53.0) % BUN 8 L (9-20) mg/dL Glucose 113 H (74-99) mg/dL Calcium 8.3 L (8.4-10.2) mg/dL Microbiology - Last 24 Hours (Table) 10/15/23 23:49 Gram Stain - Final Buttock Wound Culture - Final 10/15/23 21:23 Blood Culture - Preliminary Blood 10/15/23 21:23 Blood Culture - Preliminary Blood
[2023-10-18] MEDS: ATORVASTATIN 10 MG TAB PO SCH (13:17)
[2023-10-18] MEDS: PANTOPRAZOLE 40 MG TABLET PO SCH (13:17)
[2023-10-18] MEDS: busPIRone HCl 10 MG TAB PO SCH ×2 (13:17→17:15)
[2023-10-18] MEDS: LOSARTAN 50 MG TAB PO SCH (13:17)
--- NOTE | 2023-10-18 13:52 | CT ---
EXAMINATION TYPE: CT pelvis w con DATE OF EXAM: 10/18/2023 COMPARISON: 10/15/2023 HISTORY: 77-year-old male perirectal abscess TECHNIQUE: Contiguous axial scanning of the pelvis following administration of 100 ml Isovue 300 IV c ontrast. Delayed images through the pelvis and coronal/sagittal reconstructions performed. CT DLP: 1059.2 mGycm Automated exposure control for dose reduction was used. FINDINGS: Prostate gland is enlarged and 4.9 cm wide with heterogeneous enhancement. There is a left perianal abscess measuring 3.1 x 1.9 cm versus 3.5 x 2.2 cm, previously. Some reactive left inguinal nodes redemonstrated, slightly larger 1.5 cm now. No new abnormal fluid collection in the pelvis. No dilated small bowel loops in the visualized lower abdomen. No free fluid in the pelvis. Mild overall stool burden. Hypertrophic facet arthropathy. 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 IMPRESSION: 1. ONGOING LEFT PERIANAL ABSCESS CURRENTLY 3.1 X 1.9 CM VERSUS 3.5 X 2.2 CM, PREVIOUSLY. IT APPEARS T O BE MINIMALLY SMALLER. SOME REACTIVE BORDERLINE SIZED LEFT INGUINAL ADENOPATHY. 2. PROSTATOMEGALY AT 4.9 CM WIDE. THERE IS HETEROGENEOUS ENHANCEMENT THAT COULD REFLECT BPH. CORRELAT E WITH PSA VALUES AND FURTHER CLINICAL ASSESSMENT TO EXCLUDE THE POSSIBILITY OF UNDERLYING FOCI OF [place] [facility].
[2023-10-19] MEDS: HYDROmorphone 1 MG/ML 1 ML SYRINGE IVP PRN ×3 (00:29→19:45)
[2023-10-19] MEDS: CLOPIDOGREL 75 MG TAB PO SCH (00:29)
[2023-10-19] MEDS: busPIRone HCl 10 MG TAB PO SCH ×4 (00:29→23:56)
[2023-10-19] MEDS: METOPROLOL SUCCINATE (ER) 50 MG TAB.ER.24H PO SCH ×2 (00:29→23:56)
[2023-10-19] MEDS: ASPIRIN 81 MG PO SCH ×2 (00:29→23:56)
[2023-10-19] MEDS: PIPERACILLIN-TAZOBACTAM 3.375 GM in SODIUM CHLORIDE 0.9% 100 ML IVPB SCH ×3 (00:30→17:33)
[2023-10-19] MEDS: PANTOPRAZOLE 40 MG TABLET PO SCH ×2 (00:30→11:44)
[2023-10-19] MEDS: LATANOPROST 0.005% OPHTH DROPS 2.5 ML BTL BOTH EYES SCH ×2 (00:31→23:57)
[2023-10-19] MEDS: LUBIPROSTONE 24 MCG PO SCH ×2 (00:31→11:41)
[2023-10-19] MEDS: DORZOLAMIDE HCL 2% DROPS 10 ML BTL RIGHT EYE SCH ×3 (00:31→23:57)
[2023-10-19] MEDS: HEPARIN SODIUM,PORCINE 5,000 UNIT/ML 1 ML VIAL SQ SCH ×2 (08:43→19:49)
[2023-10-19] MEDS ORDERED: HYDROmorphone 0.5 MG/0.5 ML SYRINGE IVP PRN (11:32)
[2023-10-19] MEDS: LOSARTAN 50 MG TAB PO SCH (11:43)
[2023-10-19] MEDS: ATORVASTATIN 10 MG TAB PO SCH (11:43)
[2023-10-19] MEDS: SODIUM CHLORIDE 0.9% 1,000 ML IV SCH ×2 (11:44→19:47)
--- NOTE | 2023-10-19 13:21 | P.PN ---
Subjective Progress Note Date: 10/19/23 CHIEF COMPLAINT: Perianal abscess HISTORY OF PRESENT ILLNESS: Patient reports that the pain is worsening. He reports his pain 10 out of 10 before pain medication. The perineum area on the left is more indurated. He's had no further drainage. Repeat computed tomography scan of the pelvis had shown ongoing left perianal abscess currently 3.1 x 1.9 cm versus the 3.5 x 2.2 cm previously. It appears to me minimally smaller. Some reactive borderline sized left inguinal adenopathy. PHYSICAL EXAM: VITAL SIGNS: Reviewed. GENERAL: Well-developed in no acute distress. ABDOMEN: Soft. Nondistended. Nontender. Rectum: The perineum is indurated, erythema and tender with palpation on the left. ASSESSMENT: 1. Perianal abscess PLAN: -Continue IV antibiotics -Continue warm compresses and warm showers -Continue pain management -Continue to observe Physician Recruiter note has been reviewed by physician. Signing provider agrees with the documented findings, assessment, and plan of care. Objective - Vital Signs Vital signs: Vital Signs Temp 97.5 F L 10/19/23 07:48 Pulse 64 10/19/23 07:48 Resp 16 10/19/23 07:48 BP 137/69 10/19/23 07:48 Pulse Ox 98 10/19/23 07:48 FiO2 Intake & Output 10/18/23 10/19/23 10/19/23 18:59 06:59 18:59 Intake Total 590 Output Total 317 Balance 273 Intake: Oral 590 Output: Post Void Residual 317 Other: Voiding Method Toilet Urinal # Voids 2 2 - Labs CBC & Chem 7: 10/18/23 06:23 10/18/23 06:23 Labs: Microbiology - Last 24 Hours (Table) 10/15/23 21:23 Blood Culture - Preliminary Blood 10/15/23 21:23 Blood Culture - Preliminary Blood 10/15/23 23:49 Gram Stain - Final Buttock Wound Culture - Final
--- NOTE | 2023-10-19 14:47 | P.PN ---
Subjective Progress Note Date: 10/19/23 77-year-old gentleman with history of CVA, CAD status post bypass, hypertension, IBS type who presents to emergency room with complaint of rectal pain. In the ED he underwent extensive evaluation. Tachycardic with HR in the 100s. CBC WBC 18.3. INR 1. CMP Na 135, bicarb 20, T. Bili 1.5. Troponin < 0.012. Lactic acid 1.2. UA negative LE or nitrite. EKG sinus rhythm. CT AP confirms perianal cellulitis. Patient is admitted for sepsis related to perirectal cellulitis. 10/17 Patient was seen and examined. He reports continued rectal pain and swelling. Currently on Zosyn 3.375g IV TID. Surgery on board. CBC WBC 12.3, Hct 38.8. BMP BUN 8, glu 113, Ca 8.3. BCx and WCx negative so far. 10/18 Patient was seen and examined. He reports some more drainage last night. Pain and swelling is still moderate. ID consulted, recommends following cultures. WCx negative. Surgery note reviewed, plans to repeat CT today. CBC WBC 11.68. BMP BUN 5.5. WCx is negative. 10/19 Patient was seen and examined. Repeat CT pelvis shows left perianal abscess 3.1 x 1.9 (previously 3.5 x 2.2 cm). Maintained on Zosyn. General: non toxic, no distress, appears at stated age Derm: warm, dry Head: atraumatic, normocephalic, symmetric Eyes: EOMI, no lid lag, anicteric sclera Cardiovascular: S1S2 reg, no murmur Lungs: CTA bilateral, no rhonchi, no rales , no accessory muscle use Ext: no gross muscle atrophy, no edema, no contractures Neuro: no focal neuro deficits Psych: Alert, oriented, appropriate affect Based on my assessment of this patient, this patient meets a moderate complexity level of care. Patient has an acute diagnosis of sepsis due to perirectal cellulitis that poses a threat to life or bodily function. Sepsis related to perirectal abscess: Continue Zosyn 3.375g IV TID. Decrease NS to 20 cc/hr. Telemetry monitoring. Surgery and ID on board. Chronic conditions: history of CVA, CAD status post bypass, hypertension, IBS CODE STATUS: FULL CODE. DVT Prophylaxis: Heparin SQ GI Prophylaxis: Protonix Designated medical POA if patient is not able to make medical decisions for themselves: I have reviewed the following nursing consultant notes: Surgery, ID note. I have reviewed the results of the following tests: CT pelvis I have ordered the following tests: CBC, BMP I have discussed the care of this patient with the following independent historian: I have independently interpreted the following test below: I have discussed the management of this patient with the following physician: Objective - Vital Signs Vital signs: Vital Signs Temp 97.5 F L 10/19/23 07:48 Pulse 64 10/19/23 07:48 Resp 16 10/19/23 07:48 BP 137/69 10/19/23 07:48 Pulse Ox 98 10/19/23 07:48 FiO2 Intake & Output 10/18/23 10/19/23 10/19/23 18:59 06:59 18:59 Intake Total 590 Output Total 317 Balance 273 Intake: Oral 590 Output: Post Void Residual 317 Other: Voiding Method Toilet Toilet Urinal Urinal # Voids 2 2 - Labs CBC & Chem 7: 10/18/23 06:23 10/18/23 06:23 Labs: Microbiology - Last 24 Hours (Table) 10/15/23 23:49 Anaerobic Culture - Preliminary Anus 10/15/23 21:23 Blood Culture - Preliminary Blood 10/15/23 21:23 Blood Culture - Preliminary Blood
[2023-10-19] MEDS ORDERED: POTASSIUM CHLORIDE ER 20 MEQ TAB.ER PO STA (15:56)
[2023-10-20] MEDS: PIPERACILLIN-TAZOBACTAM 3.375 GM in SODIUM CHLORIDE 0.9% 100 ML IVPB SCH ×4 (00:01→23:56)
[2023-10-20] MEDS: LUBIPROSTONE 24 MCG PO SCH ×3 (00:02→23:56)
[2023-10-20 07:00] LABS: Basophils % (A) 1 %; Eosinophils # (A) 0.7 k/uL (0-0.7); Eosinophils % (A) 10 %; HCT 38.3 % (39.0-53.0); HGB 12.9 gm/dL (13.0-17.5); Lymphocytes # (A) 1.8 k/uL (1.0-4.8); Lymphocytes % (A) 25 %; MCH 30.5 pg (25.0-35.0); MCHC 33.7 g/dL (31.0-37.0); MCV 90.5 fL (80.0-100.0); Mean Platelet Volume 8.7; Monocytes # (A) 0.5 k/uL (0-1.0); Monocytes % (A) 7 %; Neutrophils # (A) 3.9 k/uL (1.3-7.7); Neutrophils % (A) 55 %; Platelet Count 260 k/uL (150-450); RBC 4.23 m/uL (4.30-5.90); RDW 12.4 % (11.5-15.5); WBC 7.1 k/uL (3.8-10.6)
[2023-10-20 07:09] LABS: African American GFR (CKD) 82 (>60 ml/min/1.73 sqM); Anion Gap 9 mmol/L; Blood Urea Nitrogen 7 mg/dL (9-20); Calcium 8.3 mg/dL (8.4-10.2); Carbon Dioxide 25 mmol/L (22-30); Chloride 107 mmol/L (98-107); Glucose 88 mg/dL (74-99); Non-African American GFR(CKD) 71 (>60 ml/min/1.73 sqM); Potassium 4.2 mmol/L (3.5-5.1); Sodium 141 mmol/L (137-145)
[2023-10-20] MEDS: HEPARIN SODIUM,PORCINE 5,000 UNIT/ML 1 ML VIAL SQ SCH ×2 (08:48→21:08)
[2023-10-20] MEDS: SODIUM CHLORIDE 0.9% 1,000 ML IV SCH ×3 (08:50→23:55)
[2023-10-20] MEDS ORDERED: SODIUM CHLORIDE 0.9% 1,000 ML IV ONE (10:05)
[2023-10-20] MEDS ORDERED: DEXAMETHASONE SOD PHOSPHATE 4 MG/ML 1 ML VIAL IVP ONE (10:45)
[2023-10-20] MEDS ORDERED: ONDANSETRON 4 MG/2 ML VIAL IVP ONE (10:45)
[2023-10-20] MEDS ORDERED: HEPARIN SODIUM,PORCINE 5,000 UNIT/ML 1 ML VIAL SQ ONE (10:59)
--- NOTE | 2023-10-20 11:13 | P.PN ---
Subjective Progress Note Date: 10/20/23 77-year-old gentleman with history of CVA, CAD status post bypass, hypertension, IBS type who presents to emergency room with complaint of rectal pain. In the ED he underwent extensive evaluation. Tachycardic with HR in the 100s. CBC WBC 18.3. INR 1. CMP Na 135, bicarb 20, T. Bili 1.5. Troponin < 0.012. Lactic acid 1.2. UA negative LE or nitrite. EKG sinus rhythm. CT AP confirms perianal cellulitis. Patient is admitted for sepsis related to perirectal cellulitis. 10/17 Patient was seen and examined. He reports continued rectal pain and swelling. Currently on Zosyn 3.375g IV TID. Surgery on board. CBC WBC 12.3, Hct 38.8. BMP BUN 8, glu 113, Ca 8.3. BCx and WCx negative so far. 10/18 Patient was seen and examined. He reports some more drainage last night. Pain and swelling is still moderate. ID consulted, recommends following cultures. WCx negative. Surgery note reviewed, plans to repeat CT today. CBC WBC 11.68. BMP BUN 5.5. WCx is negative. 10/19 Patient was seen and examined. Repeat CT pelvis shows left perianal abscess 3.1 x 1.9 (previously 3.5 x 2.2 cm). Maintained on Zosyn. 10/20 Patient was seen and examined. No changes in clinical condition. Plans for I&D with deep wound culture with Dr. Kunz today. CBC Hg 12.9 Hct 38.3. BMP BUN 7, Ca 8.3. General: non toxic, no distress, appears at stated age Derm: warm, dry Head: atraumatic, normocephalic, symmetric Eyes: EOMI, no lid lag, anicteric sclera Cardiovascular: S1S2 reg, no murmur Lungs: CTA bilateral, no rhonchi, no rales , no accessory muscle use Ext: no gross muscle atrophy, no edema, no contractures Neuro: no focal neuro deficits Psych: Alert, oriented, appropriate affect Based on my assessment of this patient, this patient meets a moderate complexity level of care. Patient has an acute diagnosis of sepsis due to perirectal cellulitis that poses a threat to life or bodily function. Sepsis related to perirectal abscess: Continue Zosyn 3.375g IV TID. NS to 20 cc/hr. Repeat WCx. Telemetry monitoring. Surgery and ID on board. Chronic conditions: history of CVA, CAD status post bypass, hypertension, IBS CODE STATUS: FULL CODE. DVT Prophylaxis: Heparin SQ GI Prophylaxis: Protonix Designated medical POA if patient is not able to make medical decisions for themselves: I have reviewed the following gift consultant notes: Surgery, ID note. I have reviewed the results of the following tests: CBC, BMP I have ordered the following tests: I have discussed the care of this patient with the following independent historian: I have independently interpreted the following test below: I have discussed the management of this patient with the following physician: Objective - Vital Signs Vital signs: Vital Signs Temp 97.2 F L 10/20/23 10:05 Pulse 59 L 10/20/23 10:05 Resp 17 10/20/23 10:05 BP 122/60 10/20/23 10:05 Pulse Ox 96 10/20/23 10:05 FiO2 Intake & Output 10/19/23 10/20/23 10/20/23 18:59 06:59 18:59 Intake Total 200 Balance 200 Intake: Oral 200 Other: Voiding Method Toilet Toilet Urinal Urinal # Voids 2 2 # Bowel Movements 1 - Labs CBC & Chem 7: 10/20/23 05:23 10/20/23 05:23 Labs: Abnormal Lab Results - Last 24 Hours (Table) 10/20/23 10/20/23 Range/Units 05:23 05:23 RBC 4.23 L (4.30-5.90) m/uL Hgb 12.9 L (13.0-17.5) gm/dL Hct 38.3 L (39.0-53.0) % BUN 7 L (9-20) mg/dL Calcium 8.3 L (8.4-10.2) mg/dL Microbiology - Last 24 Hours (Table) 10/15/23 23:49 Anaerobic Culture - Preliminary Anus
[2023-10-20] MEDS ORDERED: fentaNYL (PF) 50 MCG/ML 2 ML AMP ONE (11:24)
[2023-10-20] MEDS ORDERED: PHENYLEPHRINE 10 MG/ML VIAL ONE (11:24)
[2023-10-20] MEDS ORDERED: SUCCINYLCHOLINE CHLORIDE 200 MG/10 ML VIAL IV ONE (11:24)
[2023-10-20] MEDS ORDERED: ePHEDrine 50 MG/ML 1 ML VIAL ONE (11:24)
[2023-10-20] MEDS ORDERED: PROPOFOL 10 MG/ML 20 ML VIAL IV ONE (11:24)
[2023-10-20] MEDS ORDERED: LIDOCAINE 0.5%-EPI 1:200,000 50 ML VIAL SQ ONE (12:01)
--- NOTE | 2023-10-20 12:25 | P.OP ---
Date of Procedure: 10/20/23 Preoperative Diagnosis: Left perirectal abscess Postoperative Diagnosis: Left perirectal abscess Procedure(s) Performed: Incision and drainage of left perirectal abscess Anesthesia: SILVIA Surgeon: Brian Kunz Estimated Blood Loss (ml): 5 Pathology: other (Wound culture) Condition: stable Disposition: PACU Description of Procedure: The patient's placed on the operating table in the prone jackknife position after receiving general anesthesia. His perineum was prepped and draped in sterile fashion. There is an area of induration the left perianal area. A cruciate incision was made over this. A small abscess cavity was entered. The abscess cavity was cultured. The wound was then packed with wet-to-dry 2 inch Kerlix. Patient tolerated procedure well. The area was infiltrated with 1% local Xylocaine with epinephrine.
--- NOTE | 2023-10-20 13:34 | P.PN ---
Subjective Progress Note Date: 10/18/23 Principal diagnosis: Reason for follow-up is left perirectal abscess Patient is a 77-year-old male with a past medical history pertinent for hypertension [place] presenting to the ER for evaluation of perirectal pain, the patient CT was suggestive of left perirectal thickness and the patient did have drainage procedure done in the ER subsequently admitted to hospital for IV antibiotic therapy. On today's evaluation there is 10/18/2023, The patient denies having any fever or any chills, the patient is breathing comfortably on room air no chest pain shortness of breath or cough no nausea vomiting no abdominal pain and denies having any worsening pain to the left perirectal area mentioned the swelling has slightly decreased in size. Patient white count is down to 11.68, creatinine 1.0 cultures so far pending Objective - Vital Signs Vital signs: Vital Signs Temp 97.9 F 10/18/23 12:36 Pulse 68 10/18/23 12:36 Resp 16 10/18/23 12:36 BP 146/68 10/18/23 12:36 Pulse Ox 98 10/18/23 12:36 FiO2 Intake & Output 10/17/23 10/18/23 10/18/23 18:59 06:59 18:59 Other: Voiding Method Toilet Urinal # Voids 1 2 - Exam GENERAL DESCRIPTION: An elderly male lying in bed in no distress RESPIRATORY SYSTEM: Unlabored breathing , decreased breath sounds at bases HEART: S1 S2 regular rate and rhythm , ABDOMEN: Soft , no tenderness EXTREMITIES: No edema feet - Labs CBC & Chem 7: 10/20/23 05:23 10/20/23 05:23 Labs: Abnormal Lab Results - Last 24 Hours (Table) 10/18/23 10/18/23 Range/Units 06:23 06:23 WBC 11.68 H (4.50-10.00) X 10*3/uL BUN 5.5 L (9.0-27.0) mg/dL BUN/Creatinine Ratio 5.50 L (12.00-20.00) Ratio Microbiology - Last 24 Hours (Table) 10/15/23 23:49 Gram Stain - Final Buttock Wound Culture - Final 10/15/23 21:23 Blood Culture - Preliminary Blood 10/15/23 21:23 Blood Culture - Preliminary Blood Assessment and Plan (1) Perianal abscess Current Visit: Yes Status: Acute Code(s): K61.0 - ANAL ABSCESS SNOMED Code(s): 29795118 Plan: 1patient presented to hospital with perirectal pain started 2 days before presentation to the hospital in this patient did have elevated white count with abnormal CT abdominal pelvis soft tissue thickening to the left in the region of the perirectal area concerning for perirectal inflammation/abscess s/p drainage in the ER likely pathogen need to cover will be enteric gram-negative both aerobes and anaerobes 2patient to continue with Zosyn 3.375 g every 8 hours while waiting for the culture to finalize Dictation was produced using [employer] dictation software. please excuse any grammatical, word or spelling errors. Time with Patient: Less than 30
--- NOTE | 2023-10-20 13:36 | P.PN ---
Subjective Progress Note Date: 10/19/23 Principal diagnosis: Reason for follow-up is left perirectal abscess Patient is a 77-year-old male with a past medical history pertinent for hypertension [place] presenting to the ER for evaluation of perirectal pain, the patient CT was suggestive of left perirectal thickness and the patient did have drainage procedure done in the ER subsequently admitted to hospital for IV antibiotic therapy. On today's evaluation there is 10/19/2023, The patient remains to be afebrile, the patient is breathing comfortably on room air, the patient denies having any chest pain shortness of breath or cough no nausea vomiting no abdominal pain and pain to the left perirectal area has decreased in intensity Patient white count is down to 11.68, creatinine 1.0 as of 10/18/2023 no lab draw today cultures so far pending Objective - Vital Signs Vital signs: Vital Signs Temp 97.5 F L 10/19/23 07:48 Pulse 64 10/19/23 07:48 Resp 16 10/19/23 07:48 BP 137/69 10/19/23 07:48 Pulse Ox 98 10/19/23 07:48 FiO2 Intake & Output 10/18/23 10/19/23 10/19/23 18:59 06:59 18:59 Intake Total 590 Output Total 317 Balance 273 Intake: Oral 590 Output: Post Void Residual 317 Other: Voiding Method Toilet Toilet Urinal Urinal # Voids 2 2 - Exam GENERAL DESCRIPTION: An elderly male lying in bed in no distress RESPIRATORY SYSTEM: Unlabored breathing , decreased breath sounds at bases HEART: S1 S2 regular rate and rhythm , ABDOMEN: Soft , no tenderness EXTREMITIES: No edema feet - Labs CBC & Chem 7: 10/20/23 05:23 10/20/23 05:23 Labs: Microbiology - Last 24 Hours (Table) 10/15/23 21:23 Blood Culture - Preliminary Blood 10/15/23 21:23 Blood Culture - Preliminary Blood 10/15/23 23:49 Gram Stain - Final Buttock Wound Culture - Final Assessment and Plan (1) Perianal abscess Current Visit: Yes Status: Acute Code(s): K61.0 - ANAL ABSCESS SNOMED Code(s): 38872017 Plan: 1patient presented to hospital with perirectal pain started 2 days before presentation to the hospital in this patient did have elevated white count with abnormal CT abdominal pelvis soft tissue thickening to the left in the region of the perirectal area concerning for perirectal inflammation/abscess s/p drainage in the ER likely pathogen need to cover will be enteric gram-negative both aerobes and anaerobes 2patient did have a repeat CT of the pelvis completed with evidence of left perianal abscess, possible surgical drainage in the morning, patient to continue with Zosyn 3.375 g every 8 hours and monitor clinical course closely Dictation was produced using [employer] dictation software. please excuse any grammatical, word or spelling errors. Time with Patient: Less than 30
[2023-10-20] MEDS: HYDROmorphone 1 MG/ML 1 ML SYRINGE IVP PRN ×4 (13:39→22:42)
[2023-10-20] MEDS: DORZOLAMIDE HCL 2% DROPS 10 ML BTL RIGHT EYE SCH ×2 (13:42→23:53)
[2023-10-20] MEDS: PANTOPRAZOLE 40 MG TABLET PO SCH ×3 (13:42→23:54)
[2023-10-20] MEDS: busPIRone HCl 10 MG TAB PO SCH ×3 (13:42→23:54)
[2023-10-20] MEDS: ATORVASTATIN 10 MG TAB PO SCH (13:42)
[2023-10-20] MEDS: LOSARTAN 50 MG TAB PO SCH (13:42)
[2023-10-20] MEDS: LATANOPROST 0.005% OPHTH DROPS 2.5 ML BTL BOTH EYES SCH (23:53)
[2023-10-20] MEDS: ASPIRIN 81 MG PO SCH ×2 (23:54→23:56)
[2023-10-20] MEDS: METOPROLOL SUCCINATE (ER) 50 MG TAB.ER.24H PO SCH (23:54)
[2023-10-21] MEDS: HYDROmorphone 1 MG/ML 1 ML SYRINGE IVP PRN ×6 (01:27→23:43)
[2023-10-21 07:14] LABS: HCT 38.1 % (39.0-53.0); HGB 12.6 gm/dL (13.0-17.5); MCH 30.1 pg (25.0-35.0); Mean Platelet Volume 8.9; Platelet Count 270 k/uL (150-450); RBC 4.18 m/uL (4.30-5.90); RDW 12.8 % (11.5-15.5); WBC 10.6 k/uL (3.8-10.6)
[2023-10-21 07:34] LABS: African American GFR (CKD) 74 (>60 ml/min/1.73 sqM); Anion Gap 9 mmol/L; Blood Urea Nitrogen 8 mg/dL (9-20); Calcium 8.4 mg/dL (8.4-10.2); Carbon Dioxide 24 mmol/L (22-30); Chloride 106 mmol/L (98-107); Glucose 97 mg/dL (74-99); Non-African American GFR(CKD) 64 (>60 ml/min/1.73 sqM); Potassium 4.7 mmol/L (3.5-5.1); Sodium 139 mmol/L (137-145)
[2023-10-21] MEDS: HEPARIN SODIUM,PORCINE 5,000 UNIT/ML 1 ML VIAL SQ SCH ×2 (08:26→20:30)
[2023-10-21] MEDS: LUBIPROSTONE 24 MCG PO SCH ×2 (08:27→22:14)
[2023-10-21] MEDS: PIPERACILLIN-TAZOBACTAM 3.375 GM in SODIUM CHLORIDE 0.9% 100 ML IVPB SCH ×2 (08:29→17:18)
[2023-10-21] MEDS: LOSARTAN 50 MG TAB PO SCH (08:30)
[2023-10-21] MEDS: SODIUM CHLORIDE 0.9% 1,000 ML IV SCH ×2 (08:30→20:43)
[2023-10-21] MEDS: PANTOPRAZOLE 40 MG TABLET PO SCH ×2 (08:30→23:42)
[2023-10-21] MEDS: ATORVASTATIN 10 MG TAB PO SCH (08:30)
[2023-10-21] MEDS: busPIRone HCl 10 MG TAB PO SCH ×3 (08:30→23:42)
[2023-10-21] MEDS: DORZOLAMIDE HCL 2% DROPS 10 ML BTL RIGHT EYE SCH ×2 (08:30→23:44)
[2023-10-21] MEDS: HYDROcodone/APAP 5-325MG 1 EACH TAB PO PRN ×2 (09:36→13:46)
--- NOTE | 2023-10-21 11:06 | P.PN ---
Subjective Progress Note Date: 10/20/23 Principal diagnosis: Reason for follow-up is left perirectal abscess Patient is a 77-year-old male with a past medical history pertinent for hypertension [place] presenting to the ER for evaluation of perirectal pain, the patient CT was suggestive of left perirectal thickness and the patient did have drainage procedure done in the ER subsequently admitted to hospital for IV antibiotic therapy. Patient is status post surgical drainage of the left perirectal/perianal abscess completed on 10/20/2023 On today's evaluation there is 10/20/2023, The patient continues to be afebrile, the patient is breathing comfortably on room air, the patient denies chest pain shortness of breath or cough, the patient denies nausea vomiting no abdominal pain and pain to the left perirectal area has decreased in intensity Patient white count normalized to 7.1, creatinine 1.03, initial culture negative cultures obtained today pending Objective - Vital Signs Vital signs: Vital Signs Temp 97 F L 10/20/23 12:22 Pulse 64 10/20/23 12:52 Resp 16 10/20/23 12:52 BP 128/61 10/20/23 12:52 Pulse Ox 93 L 10/20/23 12:52 FiO2 Intake & Output 10/19/23 10/20/23 10/20/23 18:59 06:59 18:59 Intake Total 200 750 Output Total 5 Balance 200 745 Intake: IV 750 Oral 200 Output: Estimated Blood Loss 5 Other: Voiding Method Toilet Toilet Toilet Urinal Urinal Urinal # Voids 2 2 # Bowel Movements 1 - Exam GENERAL DESCRIPTION: An elderly male lying in bed in no distress RESPIRATORY SYSTEM: Unlabored breathing , decreased breath sounds at bases HEART: S1 S2 regular rate and rhythm , ABDOMEN: Soft , no tenderness EXTREMITIES: No edema feet - Labs CBC & Chem 7: 10/20/23 05:23 10/20/23 05:23 Labs: Abnormal Lab Results - Last 24 Hours (Table) 10/20/23 10/20/23 Range/Units 05:23 05:23 RBC 4.23 L (4.30-5.90) m/uL Hgb 12.9 L (13.0-17.5) gm/dL Hct 38.3 L (39.0-53.0) % BUN 7 L (9-20) mg/dL Calcium 8.3 L (8.4-10.2) mg/dL Microbiology - Last 24 Hours (Table) 10/15/23 23:49 Anaerobic Culture - Final Anus Assessment and Plan (1) Perianal abscess Current Visit: Yes Status: Acute Code(s): K61.0 - ANAL ABSCESS SNOMED Code(s): 97080835 Plan: 1patient presented to hospital with perirectal pain started 2 days before presentation to the hospital in this patient did have elevated white count with abnormal CT abdominal pelvis soft tissue thickening to the left in the region of the perirectal area concerning for perirectal inflammation/abscess s/p drainage in the ER likely pathogen need to cover will be enteric gram-negative both aerobes and anaerobes 2patient did have a repeat CT of the pelvis completed with evidence of left perianal abscess, patient is status post surgical drainage of this abscess completed 10/20/2023 culture has been obtained which are currently pending 3patient to continue with Zosyn 3.375 g every 8 hours while waiting for the OR culture to be finalized Dictation was produced using [employer] dictation software. please excuse any grammatical, word or spelling errors. Time with Patient: Less than 30
--- NOTE | 2023-10-21 11:36 | P.PN ---
Subjective Progress Note Date: 10/21/23 CHIEF COMPLAINT: Perianal abscess HISTORY OF PRESENT ILLNESS: Patient is postop day #1 status post incision and drainage of left perirectal abscess. Patient does complain of pain. He reports the pain does feel different than yesterday. There has been bloody drainage from the incision site. Patient reports a dressing was changed 4 times through the night. Afebrile. WBC 10.6 HGB 12.6 OR cultures pending PHYSICAL EXAM: VITAL SIGNS: Reviewed. GENERAL: Well-developed in no acute distress. ABDOMEN: Soft. Nondistended. Nontender. Rectum: Incision noted along the left side of the rectum. Tender with palpation. Induration decreased. Erythema noted. ASSESSMENT: 1. Perirectal abscess. Status post incision and drainage PLAN: -Continue pain management. [place] added for oral pain medication -Continue IV antibiotics -Continue warm compresses and warm showers -Continue local wound care Physician Construction Helper note has been reviewed by physician. Signing provider agrees with the documented findings, assessment, and plan of care. Objective - Vital Signs Vital signs: Vital Signs Temp 97.4 F L 10/21/23 07:26 Pulse 66 10/21/23 08:30 Resp 18 10/21/23 08:30 BP 151/81 10/21/23 07:26 Pulse Ox 96 10/21/23 07:26 FiO2 Intake & Output 10/20/23 10/21/23 10/21/23 18:59 06:59 18:59 Intake Total 750 540 Output Total 5 Balance 745 540 Intake: IV 750 Oral 540 Output: Estimated Blood Loss 5 Other: Voiding Method Toilet Toilet Toilet Urinal # Voids 2 1 - Labs CBC & Chem 7: 10/21/23 05:39 10/21/23 05:39 Labs: Abnormal Lab Results - Last 24 Hours (Table) 10/21/23 10/21/23 Range/Units 05:39 05:39 RBC 4.18 L (4.30-5.90) m/uL Hgb 12.6 L (13.0-17.5) gm/dL Hct 38.1 L (39.0-53.0) % BUN 8 L (9-20) mg/dL Microbiology - Last 24 Hours (Table) 10/20/23 12:35 Gram Stain - Preliminary Buttock 10/15/23 21:23 Blood Culture - Final Blood 10/15/23 21:23 Blood Culture - Final Blood 10/15/23 23:49 Anaerobic Culture - Final Anus
--- NOTE | 2023-10-21 14:51 | P.PN ---
Subjective Progress Note Date: 10/21/23 Hospital Course: 77-year-old male with history of CVA, CAD status post CABG, hypertension, IBS presenting with rectal bleeding. On presentation, patient was tachycardic, WBC 18.3, bicarb 20, total bili 1.5, troponin negative, lactate 1.2, urinalysis negative, EKG sinus rhythm, CT abdomen and pelvis showed perianal cellulitis. Patient admitted for perirectal cellulitis, sepsis. Started on IV antibiotics. Now status post I&D. ID also following. Subjective: Patient seen and examined at bedside. No acute events overnight. Pertinent positives and negatives as discussed above, a complete review of systems was performed and all other systems are negative. Vitals Signs Reviewed. General: nontoxic, no distress, appears at stated age Derm: warm, dry, rectal abscess packed, dressing has blood on it Head: atraumatic, normocephalic, symmetric Eyes: EOMI, no lid lag, anicteric sclera Mouth: no lip lesion, mucus membranes moist Cardiovascular: S1S2 reg, no murmur Lungs: CTA bilateral, no rhonchi, no rales , no accessory muscle use Abdominal: soft, nontender to palpation, no guarding, no appreciable organomegaly Ext: no gross muscle atrophy, no edema, no contractures Neuro: CN II-XI grossly intact, no focal neuro deficits Psych: Alert, oriented, appropriate affect Data Reviewed Today: Pertinent Labs: WBC 10.6, hemoglobin 12.6, creatinine 1.12 Imaging: No new imaging Assessment and Plan: Active: Sepsis secondary to perirectal abscess with cellulitis -Surgery Note Reviewed, Continue Pain Management, [place] Added, Continue Warm Compresses or Warm Showers, Local Wound Care -ID following, continue Zosyn 3.375 g every 8 hours -Further pain control with oral Tylenol as needed, IV Dilaudid as needed, monitor for sedation Acute urinary retention -had straight cath once -if unable to void, will consider [place] Chronic: Hypertension CAD status post CABG Lipidemia History of CVA DVT ppx: Subcu heparin Code status: Full code Anticipated discharge place: Pending clinical course Anticipated discharge time: Pending clinical course Objective - Vital Signs Vital signs: Vital Signs Temp 97.5 F L 10/21/23 12:35 Pulse 59 L 10/21/23 12:35 Resp 18 10/21/23 12:35 BP 150/81 10/21/23 12:35 Pulse Ox 97 10/21/23 12:35 FiO2 Intake & Output 10/20/23 10/21/23 10/21/23 18:59 06:59 18:59 Intake Total 750 540 Output Total 5 1100 Balance 745 540 -1100 Intake: IV 750 Oral 540 Output: Urine 1100 Straight 1100 Estimated Blood Loss 5 Other: Voiding Method Toilet Toilet Toilet Urinal # Voids 2 1 - Labs CBC & Chem 7: 10/21/23 05:39 10/21/23 05:39 Labs: Abnormal Lab Results - Last 24 Hours (Table) 10/21/23 10/21/23 Range/Units 05:39 05:39 RBC 4.18 L (4.30-5.90) m/uL Hgb 12.6 L (13.0-17.5) gm/dL Hct 38.1 L (39.0-53.0) % BUN 8 L (9-20) mg/dL Microbiology - Last 24 Hours (Table) 10/20/23 12:35 Gram Stain - Preliminary Buttock 10/15/23 21:23 Blood Culture - Final Blood 10/15/23 21:23 Blood Culture - Final Blood 10/15/23 23:49 Anaerobic Culture - Final Anus
[2023-10-21] MEDS: HYDROcodone/APAP 7.5-325MG 1 EACH TAB PO PRN (18:50)
[2023-10-21] MEDS: ASPIRIN 81 MG PO SCH (23:42)
[2023-10-21] MEDS: METOPROLOL SUCCINATE (ER) 50 MG TAB.ER.24H PO SCH (23:43)
[2023-10-21] MEDS: LATANOPROST 0.005% OPHTH DROPS 2.5 ML BTL BOTH EYES SCH (23:44)
[2023-10-22] MEDS: PIPERACILLIN-TAZOBACTAM 3.375 GM in SODIUM CHLORIDE 0.9% 100 ML IVPB SCH ×3 (01:13→16:07)
[2023-10-22] MEDS: HYDROcodone/APAP 7.5-325MG 1 EACH TAB PO PRN ×3 (05:26→18:11)
[2023-10-22] MEDS: SODIUM CHLORIDE 0.9% 1,000 ML IV SCH ×2 (05:27→16:12)
[2023-10-22] MEDS: TAMSULOSIN 0.4 MG CAP.ER.24H PO SCH (09:17)
[2023-10-22] MEDS: HEPARIN SODIUM,PORCINE 5,000 UNIT/ML 1 ML VIAL SQ SCH ×2 (09:18→19:56)
[2023-10-22 09:27] LABS: Basophils # (A) 0.04 X 10*3/uL (0.00-0.10); Basophils % (A) 0.4 %; Eosinophils # (A) 0.54 X 10*3/uL (0.04-0.35); Eosinophils % (A) 5.7 %; HCT 39.4 % (39.6-50.0); HGB 12.9 g/dL (13.0-17.0); Lymphocytes # (A) 1.89 X 10*3/uL (0.90-5.00); Lymphocytes % (A) 19.8 %; MCH 29.6 pg (27.0-32.0); MCHC 32.7 g/dL (32.0-37.0); MCV 90.4 FL (80.0-97.0); Mean Platelet Volume 10.9 FL (9.5-12.2); Monocytes # (A) 0.86 X 10*3/uL (0.20-1.00); NRBC Per 100 WBC 0 X 10*3/uL (0.00-0.01); Neutrophils % (A) 64.1 %; Platelet Count 290 X 10*3/uL (140-440); RBC 4.36 X 10*6/uL (4.40-5.60); RDW 12.5 % (11.5-14.5); WBC 9.53 X 10*3/uL (4.50-10.00)
[2023-10-22 09:35] LABS: BUN/Creat Ratio 5.82 Ratio (12.00-20.00); Blood Urea Nitrogen 6.4 mg/dL (9.0-27.0); Calcium 8.8 mg/dL (8.7-10.3); Carbon Dioxide 25.5 mmol/L (21.6-31.8); Chloride 107 mmol/L (96-109); Glucose 96 mg/dL (70-110); Potassium 4.4 mmol/L (3.5-5.5); Sodium 142 mmol/L (135-145)
[2023-10-22] MEDS: ONDANSETRON 4 MG/2 ML VIAL IVP PRN ×2 (10:55→18:28)
[2023-10-22] MEDS: busPIRone HCl 10 MG TAB PO SCH ×3 (11:54→23:30)
[2023-10-22] MEDS: PANTOPRAZOLE 40 MG TABLET PO SCH ×2 (11:54→23:30)
[2023-10-22] MEDS: ATORVASTATIN 10 MG TAB PO SCH (11:54)
[2023-10-22] MEDS: LOSARTAN 50 MG TAB PO SCH (11:54)
[2023-10-22] MEDS: DORZOLAMIDE HCL 2% DROPS 10 ML BTL RIGHT EYE SCH ×2 (11:55→23:31)
[2023-10-22] MEDS: LUBIPROSTONE 24 MCG PO SCH ×2 (11:55→23:32)
--- NOTE | 2023-10-22 12:11 | P.PN ---
Subjective Progress Note Date: 10/22/23 CHIEF COMPLAINT: Perianal abscess HISTORY OF PRESENT ILLNESS: Patient is postop day #2 status post incision and drainage of left perirectal abscess. Patient reports his pain is less today. Drainage is still serosanguineous. Packing changed yesterday by nursing staff. Afebrile. WBC 9.53 Hgb 12.9 platelets 290 PHYSICAL EXAM: VITAL SIGNS: Reviewed. GENERAL: Well-developed in no acute distress. ABDOMEN: Soft. Nondistended. Nontender. Rectum: Incision noted along the left side of the rectum with packing. Drainage serosanguineous. Less tender with palpation. ASSESSMENT: 1. Perirectal abscess. Status post incision and drainage PLAN: -Continue pain management. [place] added for oral pain medication -Continue antibiotics per ID service -Continue daily showers -Continue local wound care Physician Diamond Broker note has been reviewed by physician. Signing provider agrees with the documented findings, assessment, and plan of care. Objective - Vital Signs Vital signs: Vital Signs Temp 97.9 F 10/22/23 07:23 Pulse 70 10/22/23 07:23 Resp 18 10/22/23 07:23 BP 161/83 10/22/23 07:23 Pulse Ox 95 10/22/23 07:23 FiO2 Intake & Output 10/21/23 10/22/23 10/22/23 18:59 06:59 18:59 Intake Total 1040 Output Total 1880 1800 Balance -1880 -760 Intake: Intake, IV Titration 440 Amount Piperacillin-Tazobactam 3 200 .375 gm In Sodium Chloride 0.9% 100 ml @ 25 mls/hr IVPB Q8H [facility] Rx#: [id number] Sodium Chloride 0.9% 1, 240 000 ml @ 20 mls/hr IV . Q24H [facility] Rx#:[id number] Oral 600 Output: Urine 1880 1800 Straight 1880 1400 Other: Voiding Method Toilet Indwelling Catheter # Voids 1 - Labs CBC & Chem 7: 10/22/23 05:37 10/22/23 05:37 Labs: Abnormal Lab Results - Last 24 Hours (Table) 10/22/23 10/22/23 Range/Units 05:37 05:37 RBC 4.36 L (4.40-5.60) X 10*6/uL Hgb 12.9 L (13.0-17.0) g/dL Hct 39.4 L (39.6-50.0) % Immature Gran # 0.10 H (0.00-0.04) X 10*3/uL Eosinophils # 0.54 H (0.04-0.35) X 10*3/uL BUN 6.4 L (9.0-27.0) mg/dL BUN/Creatinine Ratio 5.82 L (12.00-20.00) Ratio Microbiology - Last 24 Hours (Table) 10/20/23 12:35 Gram Stain - Preliminary Buttock Wound Culture - Preliminary
--- NOTE | 2023-10-22 12:34 | P.PN ---
Subjective Progress Note Date: 10/22/23 Hospital Course: 77-year-old male with history of CVA, CAD status post CABG, hypertension, IBS presenting with rectal bleeding. On presentation, patient was tachycardic, WBC 18.3, bicarb 20, total bili 1.5, troponin negative, lactate 1.2, urinalysis negative, EKG sinus rhythm, CT abdomen and pelvis showed perianal cellulitis. Patient admitted for perirectal cellulitis, sepsis. Started on IV antibiotics. Now status post I&D. ID also following. Patient also having urinary retention, Goldstein in place. Subjective: Patient seen and examined at bedside. Still continues to have rectal pain and some bleeding. Had urinary retention, Goldstein catheter in place. Pertinent positives and negatives as discussed above, a complete review of systems was performed and all other systems are negative. Vitals Signs Reviewed. General: nontoxic, no distress, appears at stated age Derm: warm, dry, rectal abscess packed, dressing not observed Head: atraumatic, normocephalic, symmetric Eyes: EOMI, no lid lag, anicteric sclera Mouth: no lip lesion, mucus membranes moist Cardiovascular: S1S2 reg, no murmur Lungs: CTA bilateral, no rhonchi, no rales , no accessory muscle use Abdominal: soft, nontender to palpation, no guarding, no appreciable organomegaly Ext: no gross muscle atrophy, no edema, no contractures Neuro: CN II-XI grossly intact, no focal neuro deficits Psych: Alert, oriented, appropriate affect Data Reviewed Today: Pertinent Labs: WBC 9.53, hemoglobin 12.9, creatinine 1.1 Imaging: No new imaging Assessment and Plan: Active: Sepsis secondary to perirectal abscess with cellulitis -Surgery Note Reviewed, Continue Pain Management, Continue Warm Compresses or Warm Showers, Local Wound Care -ID following, continue Zosyn 3.375 g every 8 hours -Further pain control with oral Tylenol as needed, norco as needed, IV Dilaudid as needed, monitor for sedation Acute urinary retention -Status post Goldstein catheter -Started on Flomax 0.4 mg daily -Consider voiding trial Chronic: Hypertension CAD status post CABG Lipidemia History of CVA DVT ppx: Subcu heparin Code status: Full code Anticipated discharge place: Pending clinical course Anticipated discharge time: Pending clinical course Objective - Vital Signs Vital signs: Vital Signs Temp 98.4 F 01/11/24 11:50 Pulse 78 10/22/23 11:50 Resp 18 10/22/23 11:50 BP 173/81 10/22/23 11:50 Pulse Ox 95 10/22/23 11:50 FiO2 Intake & Output 10/21/23 10/22/23 10/22/23 18:59 06:59 18:59 Intake Total 1040 Output Total 1880 1800 Balance -1880 -760 Intake: Intake, IV Titration 440 Amount Piperacillin-Tazobactam 3 200 .375 gm In Sodium Chloride 0.9% 100 ml @ 25 mls/hr IVPB Q8H [facility] Rx#: [id number] Sodium Chloride 0.9% 1, 240 000 ml @ 20 mls/hr IV . Q24H [facility] Rx#:[id number] Oral 600 Output: Urine 1880 1800 Straight 1880 1400 Other: Voiding Method Toilet Indwelling Catheter # Voids 1 - Labs CBC & Chem 7: 10/22/23 05:37 10/22/23 05:37 Labs: Abnormal Lab Results - Last 24 Hours (Table) 10/22/23 10/22/23 Range/Units 05:37 05:37 RBC 4.36 L (4.40-5.60) X 10*6/uL Hgb 12.9 L (13.0-17.0) g/dL Hct 39.4 L (39.6-50.0) % Immature Gran # 0.10 H (0.00-0.04) X 10*3/uL Eosinophils # 0.54 H (0.04-0.35) X 10*3/uL BUN 6.4 L (9.0-27.0) mg/dL BUN/Creatinine Ratio 5.82 L (12.00-20.00) Ratio Microbiology - Last 24 Hours (Table) 10/20/23 12:35 Gram Stain - Preliminary Buttock Wound Culture - Preliminary
[2023-10-22 13:27] VITALS: BMI 27.8
--- NOTE | 2023-10-22 16:01 | P.PN ---
Subjective Progress Note Date: 10/21/23 Principal diagnosis: Reason for follow-up is left perirectal abscess Patient is a 77-year-old male with a past medical history pertinent for hypertension [place] presenting to the ER for evaluation of perirectal pain, the patient CT was suggestive of left perirectal thickness and the patient did have drainage procedure done in the ER subsequently admitted to hospital for IV antibiotic therapy. Patient is status post surgical drainage of the left perirectal/perianal abscess completed on 10/20/2023 On today's evaluation there is 10/21/2023, The patient remains to be afebrile, the patient is breathing comfortably on room air, the patient denies chest pain shortness of breath or cough, the patient denies nausea vomiting no abdominal pain denies any worsening pain to the left perirectal area Patient white count of 10.6, creatinine is 1.12, initial culture negative cult ures obtained today pending Objective - Vital Signs Vital signs: Vital Signs Temp 97.4 F L 10/21/23 07:26 Pulse 66 10/21/23 08:30 Resp 18 10/21/23 08:30 BP 151/81 10/21/23 07:26 Pulse Ox 96 10/21/23 07:26 FiO2 Intake & Output 10/20/23 10/21/23 10/21/23 18:59 06:59 18:59 Intake Total 750 540 Output Total 5 Balance 745 540 Intake: IV 750 Oral 540 Output: Estimated Blood Loss 5 Other: Voiding Method Toilet Toilet Toilet Urinal # Voids 2 1 - Exam GENERAL DESCRIPTION: An elderly male lying in bed in no distress RESPIRATORY SYSTEM: Unlabored breathing , decreased breath sounds at bases HEART: S1 S2 regular rate and rhythm , ABDOMEN: Soft , no tenderness EXTREMITIES: No edema feet - Labs CBC & Chem 7: 10/22/23 05:37 10/22/23 05:37 Labs: Abnormal Lab Results - Last 24 Hours (Table) 10/21/23 10/21/23 Range/Units 05:39 05:39 RBC 4.18 L (4.30-5.90) m/uL Hgb 12.6 L (13.0-17.5) gm/dL Hct 38.1 L (39.0-53.0) % BUN 8 L (9-20) mg/dL Microbiology - Last 24 Hours (Table) 10/20/23 12:35 Gram Stain - Preliminary Buttock 10/15/23 21:23 Blood Culture - Final Blood 10/15/23 21:23 Blood Culture - Final Blood 10/15/23 23:49 Anaerobic Culture - Final Anus Assessment and Plan (1) Perianal abscess Current Visit: Yes Status: Acute Code(s): K61.0 - ANAL ABSCESS SNOMED Code(s): 28448131 Plan: 1patient presented to hospital with perirectal pain started 2 days before presentation to the hospital in this patient did have elevated white count with abnormal CT abdominal pelvis soft tissue thickening to the left in the region of the perirectal area concerning for perirectal inflammation/abscess s/p drainage in the ER likely pathogen need to cover will be enteric gram-negative both aer obes and anaerobes 2patient did have a repeat CT of the pelvis completed with evidence of left perianal abscess, patient is status post surgical drainage of this abscess completed 10/20/2023 culture has been obtained which are currently pending 3patient did have a clinical improvement and will continue with Zosyn 3.375 g every 8 hours while waiting for the OR culture to be finalized Dictation was produced using [employer] dictation software. please excuse any grammatical, word or spelling errors. Time with Patient: Less than 30
--- NOTE | 2023-10-22 16:02 | P.PN ---
Subjective Progress Note Date: 10/22/23 Principal diagnosis: Reason for follow-up is left perirectal abscess Patient is a 77-year-old male with a past medical history pertinent for hypertension [place] presenting to the ER for evaluation of perirectal pain, the patient CT was suggestive of left perirectal thickness and the patient did have drainage procedure done in the ER subsequently admitted to hospital for IV antibiotic therapy. Patient is status post surgical drainage of the left perirectal/perianal abscess completed on 10/20/2023 On today's evaluation there is 10/22/2023, The patient continues to be afebrile, the patient is breathing comfortably on room air, the patient denies chest pain shortness of breath or cough, the patient denies abdominal pain, no nausea or vomiting and pain to the left perirectal area has decreased in intensity Patient white count of 9.53, creatinine is 1.1, initial culture negative cultures obtained today pending Objective - Vital Signs Vital signs: Vital Signs Temp 98.4 F 10/22/23 11:50 Pulse 78 10/22/23 11:50 Resp 18 10/22/23 11:50 BP 173/81 10/22/23 11:50 Pulse Ox 95 10/22/23 11:50 FiO2 Intake & Output 10/21/23 10/22/23 10/22/23 18:59 06:59 18:59 Intake Total 1040 Output Total 1880 1800 750 Balance -1880 -760 -750 Weight 90.718 kg Intake: Intake, IV Titration 440 Amount Piperacillin-Tazobactam 3 200 .375 gm In Sodium Chloride 0.9% 100 ml @ 25 mls/hr IVPB Q8H [facility] Rx#: [id number] Sodium Chloride 0.9% 1, 240 000 ml @ 20 mls/hr IV . Q24H [facility] Rx#:[id number] Oral 600 Output: Urine 1880 1800 750 Straight 1880 1400 Other: Voiding Method Toilet Indwelling Catheter Indwelling Catheter # Voids 1 - Exam GENERAL DESCRIPTION: An elderly male lying in bed in no distress RESPIRATORY SYSTEM: Unlabored breathing , decreased breath sounds at bases HEART: S1 S2 regular rate and rhythm , ABDOMEN: Soft , no tenderness EXTREMITIES: No edema feet - Labs CBC & Chem 7: 10/22/23 05:37 10/22/23 05:37 Labs: Abnormal Lab Results - Last 24 Hours (Table) 10/22/23 10/22/23 Range/Units 05:37 05:37 RBC 4.36 L (4.40-5.60) X 10*6/uL Hgb 12.9 L (13.0-17.0) g/dL Hct 39.4 L (39.6-50.0) % Immature Gran # 0.10 H (0.00-0.04) X 10*3/uL Eosinophils # 0.54 H (0.04-0.35) X 10*3/uL BUN 6.4 L (9.0-27.0) mg/dL BUN/Creatinine Ratio 5.82 L (12.00-20.00) Ratio Microbiology - Last 24 Hours (Table) 10/20/23 12:35 Gram Stain - Preliminary Buttock Wound Culture - Preliminary Assessment and Plan (1) Perianal abscess Current Visit: Yes Status: Acute Code(s): K61.0 - ANAL ABSCESS SNOMED Code(s): 37565285 Plan: 1patient presented to hospital with perirectal pain started 2 days before presentation to the hospital in this patient did have elevated white count with abnormal CT abdominal pelvis soft tissue thickening to the left in the region of the perirectal area concerning for perirectal inflammation/abscess s/p drainage in the ER likely pathogen need to cover will be enteric gram-negative both aerobes and anaerobes 2patient did have a repeat CT of the pelvis completed with evidence of left perianal abscess, patient is status post surgical drainage of this abscess completed 10/20/2023 culture has been obtained which are currently pending 3patient did have a clinical improvement and will continue with Zosyn 3.375 g every 8 hours, keeping in mind the patient is going to the group home for the local wound care may benefit from getting a midline and continue with IV Zosyn for about 10 days on discharge. Family at the bedside questions were answered Dictation was produced using [id number] dictation software. please excuse any grammatical, word or spelling errors. Time with Patient: Less than 30
[2023-10-22] MEDS: SENNOSIDES 8.6 MG TAB PO SCH (16:07)
[2023-10-22] MEDS: METOPROLOL SUCCINATE (ER) 50 MG TAB.ER.24H PO SCH (23:30)
[2023-10-22] MEDS: ASPIRIN 81 MG PO SCH (23:31)
[2023-10-22] MEDS: LATANOPROST 0.005% OPHTH DROPS 2.5 ML BTL BOTH EYES SCH (23:31)
[2023-10-23] MEDS: PIPERACILLIN-TAZOBACTAM 3.375 GM in SODIUM CHLORIDE 0.9% 100 ML IVPB SCH ×4 (00:17→23:48)
[2023-10-23] MEDS: SODIUM CHLORIDE 0.9% 1,000 ML IV SCH ×3 (03:30→23:45)
[2023-10-23] MEDS: TAMSULOSIN 0.4 MG CAP.ER.24H PO SCH (08:12)
[2023-10-23] MEDS: SENNOSIDES 8.6 MG TAB PO SCH (08:12)
[2023-10-23] MEDS: HEPARIN SODIUM,PORCINE 5,000 UNIT/ML 1 ML VIAL SQ SCH ×2 (08:12→19:58)
[2023-10-23] MEDS: HYDROcodone/APAP 7.5-325MG 1 EACH TAB PO PRN ×2 (08:16→14:47)
[2023-10-23] MEDS ORDERED: PIPERACILLIN-TAZOBACTAM 3.375 GM in SODIUM CHLORIDE 0.9% 100 ML IVPB SCH (08:45)
--- NOTE | 2023-10-23 11:55 | P.PN ---
Subjective Progress Note Date: 10/23/23 CHIEF COMPLAINT: Perianal abscess HISTORY OF PRESENT ILLNESS: Patient is postop day #3 status post incision and drainage of left perirectal abscess. Pain is controlled. Drainage is still serosanguineous. Afebrile. WBC 9.53 and HGB 12.9 yesterday. Cultures are negative so far. PHYSICAL EXAM: VITAL SIGNS: Reviewed. GENERAL: Well-developed in no acute distress. ABDOMEN: Soft. Nondistended. Nontender. Rectum: Incision noted along the left side of the rectum with packing. Drainage serosanguineous. Less tender with palpation. ASSESSMENT: 1. Perirectal abscess. Status post incision and drainage PLAN: -Continue antibiotics per ID service -Continue daily showers -Continue local wound care -Continue pain management -Patient is looking into ECF at discharge -Consult urology for urinary retention. History of BPH. Now on Flomax. Physician Bar Examiner note has been reviewed by physician. Signing provider agrees with the documented findings, assessment, and plan of care. Objective - Vital Signs Vital signs: Vital Signs Temp 98.2 F 10/23/23 07:28 Pulse 62 10/23/23 07:28 Resp 16 10/23/23 07:28 BP 160/79 10/23/23 07:28 Pulse Ox 94 L 10/23/23 07:28 FiO2 Intake & Output 10/22/23 10/23/23 10/23/23 18:59 06:59 18:59 Intake Total 1040 Output Total 1350 1300 Balance -1350 -260 Weight 90.718 kg Intake: Intake, IV Titration 440 Amount Piperacillin-Tazobactam 3 200 .375 gm In Sodium Chloride 0.9% 100 ml @ 25 mls/hr IVPB Q8H [facility] Rx#: [id number] Sodium Chloride 0.9% 1, 240 000 ml @ 20 mls/hr IV . Q24H [facility] Rx#:[id number] Oral 600 Output: Urine 1350 1300 Other: Voiding Method Indwelling Catheter Indwelling Catheter Indwelling Catheter - Labs CBC & Chem 7: 10/22/23 05:37 10/22/23 05:37 Labs: Microbiology - Last 24 Hours (Table) 10/20/23 12:35 Anaerobic Culture - Preliminary Buttock 10/20/23 12:35 Gram Stain - Preliminary Buttock Wound Culture - Preliminary
[2023-10-23] MEDS: ATORVASTATIN 10 MG TAB PO SCH (12:28)
[2023-10-23] MEDS: busPIRone HCl 10 MG TAB PO SCH ×3 (12:28→23:44)
[2023-10-23] MEDS: LOSARTAN 50 MG TAB PO SCH (12:28)
[2023-10-23] MEDS: DORZOLAMIDE HCL 2% DROPS 10 ML BTL RIGHT EYE SCH ×2 (12:28→23:44)
[2023-10-23] MEDS: PANTOPRAZOLE 40 MG TABLET PO SCH ×2 (12:28→23:44)
[2023-10-23] MEDS: LUBIPROSTONE 24 MCG PO SCH ×2 (12:29→23:47)
--- NOTE | 2023-10-23 13:15 | P.PN ---
Subjective Progress Note Date: 10/23/23 Hospital Course: 77-year-old male with history of CVA, CAD status post CABG, hypertension, IBS presenting with rectal bleeding. On presentation, patient was tachycardic, WBC 18.3, bicarb 20, total bili 1.5, troponin negative, lactate 1.2, urinalysis negative, EKG sinus rhythm, CT abdomen and pelvis showed perianal cellulitis. Patient admitted for perirectal cellulitis, sepsis. Started on IV antibiotics. Now status post I&D. ID also following. Patient also having urinary retention, Goldstein in place. Subjective: Patient seen and examined at bedside. Still continues to have rectal pain but improving. Goldstein catheter in place. Pertinent positives and negatives as discussed above, a complete review of systems was performed and all other systems are negative. Vitals Signs Reviewed. General: nontoxic, no distress, appears at stated age Derm: warm, dry, rectal abscess packed, dressing not observed Head: atraumatic, normocephalic, symmetric Eyes: EOMI, no lid lag, anicteric sclera Mouth: no lip lesion, mucus membranes moist Cardiovascular: S1S2 reg, no murmur Lungs: CTA bilateral, no rhonchi, no rales , no accessory muscle use Abdominal: soft, nontender to palpation, no guarding, no appreciable organomegaly Ext: no gross muscle atrophy, no edema, no contractures Neuro: CN II-XI grossly intact, no focal neuro deficits Psych: Alert, oriented, appropriate affect Data Reviewed Today: Pertinent Labs: no new labs Imaging: No new imaging Assessment and Plan: Active: Sepsis secondary to perirectal abscess with cellulitis -Surgery Note Reviewed, Continue Pain Management, Continue Warm Compresses or Warm Showers, Local Wound Care, urology also consulted -ID following, continue Zosyn 3.375 g every 8 hours, will likely need 10 days of IV antibiotics and discharged -Further pain control with oral Tylenol as needed, norco as needed, IV Dilaudid as needed, monitor for sedation Acute urinary retention -Status post Goldstein catheter -Started on Flomax 0.4 mg daily -Urology consulted Chronic: Hypertension CAD status post CABG Lipidemia History of CVA DVT ppx: Subcu heparin Code status: Full code Anticipated discharge place: Pending clinical course Anticipated discharge time: Pending clinical course Objective - Vital Signs Vital signs: Vital Signs Temp 97.4 F L 10/23/23 12:10 Pulse 59 L 10/23/23 12:10 Resp 18 10/23/23 12:10 BP 151/74 10/23/23 12:10 Pulse Ox 97 10/23/23 12:10 FiO2 Intake & Output 10/22/23 10/23/23 10/23/23 18:59 06:59 18:59 Intake Total 1040 Output Total 1350 1300 Balance -1350 -260 Weight 90.718 kg Intake: Intake, IV Titration 440 Amount Piperacillin-Tazobactam 3 200 .375 gm In Sodium Chloride 0.9% 100 ml @ 25 mls/hr IVPB Q8H [facility] Rx#: [id number] Sodium Chloride 0.9% 1, 240 000 ml @ 20 mls/hr IV . Q24H [facility] Rx#:[id number] Oral 600 Output: Urine 1350 1300 Other: Voiding Method Indwelling Catheter Indwelling Catheter Indwelling Catheter - Labs CBC & Chem 7: 10/22/23 05:37 10/22/23 05:37 Labs: Microbiology - Last 24 Hours (Table) 10/20/23 12:35 Anaerobic Culture - Preliminary Buttock 10/20/23 12:35 Gram Stain - Preliminary Buttock Wound Culture - Preliminary
--- NOTE | 2023-10-23 15:27 | P.PN ---
Subjective Progress Note Date: 10/23/23 Principal diagnosis: Reason for follow-up is left perirectal abscess Patient is a 77-year-old male with a past medical history pertinent for hypertension [place] presenting to the ER for evaluation of perirectal pain, the patient CT was suggestive of left perirectal thickness and the patient did have drainage procedure done in the ER subsequently admitted to hospital for IV antibiotic therapy. Patient is status post surgical drainage of the left perirectal/perianal abscess completed on 10/20/2023 On today's evaluation there is 10/23/2023, The patient remains to be afebrile, the patient is breathing comfortably on room air, the patient denies chest pain shortness of breath or cough, the patient has been complaining of more abdominal pain and distention today also have some nausea but no vomiting did not have any bowel movement Patient white count of 9.53, creatinine is 1.1 as of yesterday no lab draw today, cultures are currently pending Objective - Vital Signs Vital signs: Vital Signs Temp 98.2 F 10/23/23 07:28 Pulse 62 10/23/23 07:28 Resp 16 10/23/23 07:28 BP 160/79 10/23/23 07:28 Pulse Ox 94 L 10/23/23 07:28 FiO2 Intake & Output 10/22/23 10/23/23 10/23/23 18:59 06:59 18:59 Intake Total 1040 Output Total 1350 1300 Balance -1350 -260 Weight 90.718 kg Intake: Intake, IV Titration 440 Amount Piperacillin-Tazobactam 3 200 .375 gm In Sodium Chloride 0.9% 100 ml @ 25 mls/hr IVPB Q8H [facility] Rx#: [id number] Sodium Chloride 0.9% 1, 240 000 ml @ 20 mls/hr IV . Q24H [facility] Rx#:[id number] Oral 600 Output: Urine 1350 1300 Other: Voiding Method Indwelling Catheter Indwelling Catheter Indwelling Catheter - Exam GENERAL DESCRIPTION: An elderly male lying in bed in no distress RESPIRATORY SYSTEM: Unlabored breathing , decreased breath sounds at bases HEART: S1 S2 regular rate and rhythm , ABDOMEN: Soft , no tenderness EXTREMITIES: No edema feet - Labs CBC & Chem 7: 10/22/23 05:37 10/22/23 05:37 Labs: Microbiology - Last 24 Hours (Table) 10/20/23 12:35 Anaerobic Culture - Preliminary Buttock 10/20/23 12:35 Gram Stain - Preliminary Buttock Wound Culture - Preliminary Assessment and Plan (1) Perianal abscess Current Visit: Yes Status: Acute Code(s): K61.0 - ANAL ABSCESS SNOMED Code(s): 70664552 Plan: 1patient presented to hospital with perirectal pain started 2 days before presentation to the hospital in this patient did have elevated white count with abnormal CT abdominal pelvis soft tissue thickening to the left in the region of the perirectal area concerning for perirectal inflammation/abscess s/p drainage in the ER likely pathogen need to cover will be enteric gram-negative both aerobes and anaerobes 2patient did have a repeat CT of the pelvis completed with evidence of left perianal abscess, patient is status post surgical drainage of this abscess completed 10/20/2023 culture has been obtained which are currently pending 3patient is afebrile white count is not today complaining about abdominal distention and nausea may benefit from repeat CT follow-up continue with the Zosyn and monitor clinical course closely Dictation was produced using [employer] dictation software. please excuse any grammatical, word or spelling errors. Time with Patient: Less than 30
[2023-10-23] MEDS: LATANOPROST 0.005% OPHTH DROPS 2.5 ML BTL BOTH EYES SCH (23:44)
[2023-10-23] MEDS: ASPIRIN 81 MG PO SCH (23:44)
[2023-10-23] MEDS: METOPROLOL SUCCINATE (ER) 50 MG TAB.ER.24H PO SCH (23:44)
[2023-10-24] MEDS: HEPARIN SODIUM,PORCINE 5,000 UNIT/ML 1 ML VIAL SQ SCH ×2 (09:17→20:02)
[2023-10-24] MEDS: PIPERACILLIN-TAZOBACTAM 3.375 GM in SODIUM CHLORIDE 0.9% 100 ML IVPB SCH ×3 (09:17→23:51)
[2023-10-24] MEDS: SENNOSIDES 8.6 MG TAB PO SCH (09:17)
[2023-10-24] MEDS: TAMSULOSIN 0.4 MG CAP.ER.24H PO SCH (09:17)
[2023-10-24] MEDS: SODIUM CHLORIDE 0.9% 1,000 ML IV SCH ×2 (09:18→17:38)
--- NOTE | 2023-10-24 09:50 | P.GSCN ---
History of Present Illness Consult date: 10/24/23 History of present illness: 77 yo male in the hospital with a perianal abscess treated with I&D has gone into retention post op. We were asked to see the patient. the patient denied difficulty voiding prior to admission. He has never seen a urologist. there is no history of uti, hematuria nor incontinence. He has never been on flomax. He states that he was swollen and the nurses staright cthed him for a large volume of urine . they eventually placed an indwellling catheter. In retrospect he admits to being swollen ever since his I&D of the abscess. Past Medical History Past Medical History: Hypertension, Myocardial Infarction ([place]) Additional Past Medical History / Comment(s): high cholestrol, GI issues History of Any Multi-Drug Resistant Organisms: None Reported Past Surgical History: Orthopedic Surgery Additional Past Surgical History / Comment(s): Cardiac Bypass Past Anesthesia/Blood Transfusion Reactions: No Reported Reaction Past Psychological History: No Psychological Hx Reported Smoking Status: Never smoker Past Alcohol Use History: None Reported Past Drug Use History: None Reported Medications and Allergies Home Medications Medication Instructions Recorded Confirmed Type Aspirin EC [Ecotrin Low Dose] 81 mg PO DAILY@0000 10/16/23 10/16/23 History Clopidogrel [Plavix] 75 mg PO DAILY@10/16/23 10/16/23 History Dorzolamide 2% [Trusopt 2%] 1 drop RIGHT EYE BID@0000,1200 10/16/23 10/16/23 History Latanoprost [Latanoprost 0.005%] 1 drop BOTH EYES DAILY@0000 10/16/23 10/16/23 History Losartan [Cozaar] 50 mg PO DAILY@119910/16/23 10/16/23 History Lubiprostone [Amitiza] 24 mcg PO BID@0000,119910/16/23 10/16/23 History Metoprolol Succinate (ER) [Toprol 50 mg PO DAILY@10/16/23 10/16/23 History Xl] Omeprazole [PriLOSEC] 20 mg PO BID@1200,0000 10/16/23 10/16/23 History Rosuvastatin [Crestor] 5 mg PO DAILY@119910/16/23 10/16/23 History Simethicone 40 mg/0.6 ml Drops 40 mg PO QID PRN 10/16/23 10/16/23 History [Mylicon Drops] bisacodyL [Dulcolax] 10 mg PO DAILY@0000 10/16/23 10/16/23 History busPIRone HCl [Buspar] 10 mg PO TID@0000,1200,1800 10/16/23 10/16/23 History Allergies Allergy/AdvReac Type Severity Reaction Status Date / Time atorvastatin [From Lipitor] AdvReac joint pain Verified 10/20/23 10:12 pravastatin [From Pravachol] AdvReac Diarrhea Verified 10/20/23 10:12 Surgical - Exam Vital Signs Temp Pulse Resp BP Pulse Ox 97.7 F 103 H 16 160/87 98 10/15/23 16:38 10/15/23 16:38 10/15/23 16:38 10/15/23 16:38 10/15/23 16:38 - General well developed, well nourished, no distress - Eyes normal ocular movement, no icteric - ENT no hearing loss, no congestion - Neck no masses, trachea midline - Respiratory normal respiratory effort, clear to auscultation - Abdomen Abdomen: soft, non tender, no guarding, no rigid, no rebound - Integumentary no rash, no abnormal pigmentation - Neurologic no disoriented, no combative - Psychiatric oriented to time, oriented to person, oriented to place, speech is normal, memory intact Results - Labs 10/22/23 05:37 10/22/23 05:37 Assessment and Plan Assessment: Impression: post op urione retention. Perirectal abscess sp I&D Plan: I suspect the patient was in retention ever since his surgery because of pain and swelling from the abscess. He is on flomax now for 48 hours. I will h ave the cath removed in the am for a voiding trial this has been discussed with and understood by the patient.
--- NOTE | 2023-10-24 12:27 | P.PN ---
Subjective Progress Note Date: 10/24/23 Principal diagnosis: Reason for follow-up is left perirectal abscess Patient is a 77-year-old male with a past medical history pertinent for hypertension [place] presenting to the ER for evaluation of perirectal pain, the patient CT was suggestive of left perirectal thickness and the patient did have drainage procedure done in the ER subsequently admitted to hospital for IV antibiotic therapy. Patient is status post surgical drainage of the left perirectal/perianal abscess completed on 10/20/2023 On today's evaluation there is 10/24/2023, The patient continues to be afebrile, the patient is breathing comfortably on room air, the patient denies chest pain shortness of breath or cough, the patient did have Goldstein catheter placement for urinary retention lower abdominal discomfort has improved still complaining of pain to the perirectal area no nausea vomiting or diarrhea Patient white count of 9.53, creatinine is 1.1 as of 10/22/2023 no lab draw today, cultures are currently pending Objective - Vital Signs Vital signs: Vital Signs Temp 97.5 F L 10/24/23 08:00 Pulse 63 10/24/23 08:00 Resp 18 10/24/23 08:00 BP 158/81 10/24/23 08:00 Pulse Ox 98 10/24/23 08:00 FiO2 Intake & Output 10/23/23 10/24/23 10/24/23 18:59 06:59 18:59 Intake Total 1040 Output Total 700 600 Balance -700 440 Intake: Intake, IV Titration 440 Amount Piperacillin-Tazobactam 3 200 .375 gm In Sodium Chloride 0.9% 100 ml @ 25 mls/hr IVPB Q8H [facility] Rx#: [id number] Sodium Chloride 0.9% 1, 240 000 ml @ 20 mls/hr IV . Q24H [facility] Rx#:[id number] Oral 600 Output: Urine 700 600 Other: Voiding Method Indwelling Catheter Indwelling Catheter Indwelling Catheter - Exam GENERAL DESCRIPTION: An elderly male lying in bed in no distress RESPIRATORY SYSTEM: Unlabored breathing , decreased breath sounds at bases HEART: S1 S2 regular rate and rhythm , ABDOMEN: Soft , no tenderness EXTREMITIES: No edema feet - Labs CBC & Chem 7: 10/22/23 05:37 10/22/23 05:37 Assessment and Plan (1) Perianal abscess Current Visit: Yes Status: Acute Code(s): K61.0 - ANAL ABSCESS SNOMED Code(s): 24565747 Plan: 1patient presented to hospital with perirectal pain started 2 days before presentation to the hospital in this patient did have elevated white count with abnormal CT abdominal pelvis soft tissue thickening to the left in the region of the perirectal area concerning for perirectal inflammation/abscess s/p drainage in the ER likely pathogen need to cover will be enteric gram-negative both aerobes and anaerobes 2patient did have a repeat CT of the pelvis completed with evidence of left perianal abscess, patient is status post surgical drainage of this abscess completed 10/20/2023 culture has been obtained which are currently pending 3patient did have some clinical improvement and will continue with the Zosyn and monitor clinical course closely Dictation was produced using [email or web address] dictation software. please excuse any grammatical, word or spelling errors. Time with Patient: Less than 30
[2023-10-24] MEDS: LOSARTAN 50 MG TAB PO SCH (12:33)
[2023-10-24] MEDS: PANTOPRAZOLE 40 MG TABLET PO SCH ×2 (12:33→23:38)
[2023-10-24] MEDS: LUBIPROSTONE 24 MCG PO SCH ×2 (12:33→22:42)
[2023-10-24] MEDS: busPIRone HCl 10 MG TAB PO SCH ×3 (12:33→23:38)
[2023-10-24] MEDS: DORZOLAMIDE HCL 2% DROPS 10 ML BTL RIGHT EYE SCH ×2 (12:33→23:38)
[2023-10-24] MEDS: ATORVASTATIN 10 MG TAB PO SCH (12:33)
--- NOTE | 2023-10-24 13:32 | P.PN ---
Subjective Progress Note Date: 10/24/23 Hospital Course: 77-year-old male with history of CVA, CAD status post CABG, hypertension, IBS presenting with rectal bleeding. On presentation, patient was tachycardic, WBC 18.3, bicarb 20, total bili 1.5, troponin negative, lactate 1.2, urinalysis negative, EKG sinus rhythm, CT abdomen and pelvis showed perianal cellulitis. Patient admitted for perirectal cellulitis, sepsis. Started on IV antibiotics. Now status post I&D. ID also following. Patient also having urinary retention, Goldstein in place. Subjective: Patient seen and examined at bedside. No acute events overnight. Goldstein catheter in place. Pertinent positives and negatives as discussed above, a complete review of sy stems was performed and all other systems are negative. Vitals Signs Reviewed. General: nontoxic, no distress, appears at stated age Derm: warm, dry, rectal abscess packed, dressing not observed Head: atraumatic, normocephalic, symmetric Eyes: EOMI, no lid lag, anicteric sclera Mouth: no lip lesion, mucus membranes moist Cardiovascular: S1S2 reg, no murmur Lungs: CTA bilateral, no rhonchi, no rales , no accessory muscle use Abdominal: soft, nontender to palpation, no guarding, no appreciable organomegaly Ext: no gross muscle atrophy, no edema, no contractures Neuro: CN II-XI grossly intact, no focal neuro deficits Psych: Alert, oriented, appropriate affect Data Reviewed Today: Pertinent Labs: no new labs Imaging: No new imaging Assessment and Plan: Active: Sepsis secondary to perirectal abscess with cellulitis -Surgery following, Continue Pain Management, Continue Warm Compresses or Warm Showers, Local Wound Care -ID note reviewed, continue Zosyn 3.375 g every 8 hours -Further pain control with oral Tylenol as needed, norco as needed, IV Dilaudid as needed, monitor for sedation Acute urinary retention -Status post Goldstein catheter -Started on Flomax 0.4 mg daily -Urology note reviewed, likely voiding trial tomorrow Chronic: Hypertension CAD status post CABG Lipidemia History of CVA DVT ppx: Subcu heparin Code status: Full code Anticipated discharge place: Pending clinical course Anticipated discharge time: Pending clinical course Objective - Vital Signs Vital signs: Vital Signs Temp 97.9 F 10/24/23 13:12 Pulse 57 L 01/13/24 13:12 Resp 16 10/24/23 13:12 BP 155/75 10/24/23 13:12 Pulse Ox 95 10/24/23 13:12 FiO2 Intake & Output 10/23/23 10/24/23 10/24/23 18:59 06:59 18:59 Intake Total 1040 Output Total 700 600 Balance -700 440 Intake: Intake, IV Titration 440 Amount Piperacillin-Tazobactam 3 200 .375 gm In Sodium Chloride 0.9% 100 ml @ 25 mls/hr IVPB Q8H [facility] Rx#: [id number] Sodium Chloride 0.9% 1, 240 000 ml @ 20 mls/hr IV . Q24H [facility] Rx#:[id number] Oral 600 Output: Urine 700 600 Other: Voiding Method Indwelling Catheter Indwelling Catheter Indwelling Catheter - Labs CBC & Chem 7: 10/22/23 05:37 10/22/23 05:37
--- NOTE | 2023-10-24 14:50 | P.PN ---
Subjective Progress Note Date: 10/24/23 NAEON. No worsening rectal pain. No N/V. No F/C. NO SOB or CP. Admits to flatus and small BM. Tolerating diet. Objective - Vital Signs Vital signs: Vital Signs Temp 97.9 F 10/24/23 13:12 Pulse 57 L 10/24/23 13:12 Resp 16 10/24/23 13:12 BP 155/75 10/24/23 13:12 Pulse Ox 95 10/24/23 13:12 FiO2 Intake & Output 10/23/23 10/24/23 10/24/23 18:59 06:59 18:59 Intake Total 1040 Output Total 700 600 Balance -700 440 Intake: Intake, IV Titration 440 Amount Piperacillin-Tazobactam 3 200 .375 gm In Sodium Chloride 0.9% 100 ml @ 25 mls/hr IVPB Q8H [facility] Rx#: [id number] Sodium Chloride 0.9% 1, 240 000 ml @ 20 mls/hr IV . Q24H [facility] Rx#:[id number] Oral 600 Output: Urine 700 600 Other: Voiding Method Indwelling Catheter Indwelling Catheter Indwelling Catheter - Exam Gen: AxO, NAD Pulm: non-labored respirations Abd: soft, non-tender, non-distended. No guarding/rebound/rigidity Extrem: no edema seen - Labs CBC & Chem 7: 10/22/23 05:37 10/22/23 05:37 Assessment and Plan Assessment: Patient is a 77 year old male who is s/p drainage of perianal abscess Plan: -Diet as tolerated -Abx per primary -PRN pain and nausea control -DVT/GI Ppx -No further surgical intervention Jovon Narayan MD General Surgery
[2023-10-24] MEDS: HYDROcodone/APAP 7.5-325MG 1 EACH TAB PO PRN (15:56)
[2023-10-24] MEDS: METOPROLOL SUCCINATE (ER) 50 MG TAB.ER.24H PO SCH (23:38)
[2023-10-24] MEDS: ASPIRIN 81 MG PO SCH (23:38)
[2023-10-24] MEDS: LATANOPROST 0.005% OPHTH DROPS 2.5 ML BTL BOTH EYES SCH (23:40)
[2023-10-25] MEDS: SODIUM CHLORIDE 0.9% 1,000 ML IV SCH ×2 (06:07→16:40)
[2023-10-25] MEDS: PIPERACILLIN-TAZOBACTAM 3.375 GM in SODIUM CHLORIDE 0.9% 100 ML IVPB SCH ×3 (09:21→23:46)
[2023-10-25] MEDS: HEPARIN SODIUM,PORCINE 5,000 UNIT/ML 1 ML VIAL SQ SCH ×2 (09:21→20:29)
[2023-10-25] MEDS: SENNOSIDES 8.6 MG TAB PO SCH (09:21)
[2023-10-25] MEDS: TAMSULOSIN 0.4 MG CAP.ER.24H PO SCH (09:21)
[2023-10-25] MEDS: PANTOPRAZOLE 40 MG TABLET PO SCH ×2 (12:23→23:36)
[2023-10-25] MEDS: busPIRone HCl 10 MG TAB PO SCH ×3 (12:23→23:36)
[2023-10-25] MEDS: LOSARTAN 50 MG TAB PO SCH (12:24)
[2023-10-25] MEDS: ATORVASTATIN 10 MG TAB PO SCH (12:24)
[2023-10-25] MEDS: DORZOLAMIDE HCL 2% DROPS 10 ML BTL RIGHT EYE SCH ×2 (12:24→23:36)
[2023-10-25] MEDS: LUBIPROSTONE 24 MCG PO SCH ×2 (12:28→22:42)
--- NOTE | 2023-10-25 12:49 | P.PN ---
Subjective Progress Note Date: 10/25/23 Hospital Course: 77-year-old male with history of CVA, CAD status post CABG, hypertension, IBS presenting with rectal bleeding. On presentation, patient was tachycardic, WBC 18.3, bicarb 20, total bili 1.5, troponin negative, lactate 1.2, urinalysis negative, EKG sinus rhythm, CT abdomen and pelvis showed perianal cellulitis. Patient admitted for perirectal cellulitis, sepsis. Started on IV antibiotics. Now status post I&D. ID also following. Patient also having urinary retention, Goldstein now discontinued Subjective: Patient seen and examined at bedside. No acute events overnight. Able to ambulate Pertinent positives and negatives as discussed above, a complete review of systems was performed and all other systems are negative. Vitals Signs Reviewed. General: nontoxic, no distress, appears at stated age Derm: warm, dry, rectal abscess packed, dressing not observed Head: atraumatic, normocephalic, symmetric Eyes: EOMI, no lid lag, anicteric sclera Mouth: no lip lesion, mucus membranes moist Cardiovascular: S1S2 reg, no murmur Lungs: CTA bilateral, no rhonchi, no rales , no accessory muscle use Abdominal: soft, nontender to palpation, no guarding, no appreciable organomegaly Ext: no gross muscle atrophy, no edema, no contractures Neuro: CN II-XI grossly intact, no focal neuro deficits Psych: Alert, oriented, appropriate affect Data Reviewed Today: Pertinent Labs: no new labs Imaging: No new imaging Assessment and Plan: Active: Sepsis secondary to perirectal abscess with cellulitis -Surgery following, Continue Pain Management, Continue Warm Compresses or Warm Showers, Local Wound Care -ID note reviewed, continue Zosyn 3.375 g every 8 hours -Further pain control with oral Tylenol as needed, norco as needed, IV Dilaudid as needed, monitor for sedation Acute urinary retention -Status post Goldstein catheter , now discontinued -On Flomax 0.4 mg daily -Urology following Chronic: Hypertension CAD status post CABG Lipidemia History of CVA DVT ppx: Subcu heparin Code status: Full code Anticipated discharge place: Pending clinical course Anticipated discharge time: Pending clinical course Objective - Vital Signs Vital signs: Vital Signs Temp 97.7 F 10/25/23 08:00 Pulse 64 10/25/23 08:00 Resp 17 10/25/23 08:00 BP 155/76 10/25/23 08:00 Pulse Ox 98 10/25/23 08:00 FiO2 Intake & Output 10/24/23 10/25/23 10/25/23 18:59 06:59 18:59 Intake Total 540 840 Output Total 1000 1000 Balance -460 -160 Intake: Intake, IV Titration 340 Amount Piperacillin-Tazobactam 3 100 .375 gm In Sodium Chloride 0.9% 100 ml @ 25 mls/hr IVPB Q8H [facility] Rx#: [id number] Sodium Chloride 0.9% 1, 240 000 ml @ 20 mls/hr IV . Q24H [facility] Rx#:[id number] Oral 540 500 Output: Urine 1000 1000 Straight 1000 400 Other: Voiding Method Indwelling Catheter Indwelling Catheter Toilet Diaper - Labs CBC & Chem 7: 10/22/23 05:37 10/22/23 05:37 Labs: Microbiology - Last 24 Hours (Table) 10/20/23 12:35 Anaerobic Culture - Final Buttock
--- NOTE | 2023-10-25 14:39 | P.PN ---
Subjective Progress Note Date: 10/25/23 Pain is well controlled. Reports retention of urine and still pending void. ECF for antibiotic management and wound packing. Family is at bedside. WBC normal. Await ECF Objective - Vital Signs Vital signs: Vital Signs Temp 97.4 F L 10/25/23 13:46 Pulse 66 10/25/23 13:46 Resp 18 10/25/23 13:46 BP 160/75 10/25/23 13:46 Pulse Ox 97 10/25/23 13:46 FiO2 Intake & Output 10/24/23 10/25/23 10/25/23 18:59 06:59 18:59 Intake Total 540 840 Output Total 1000 1000 Balance -460 -160 Intake: Intake, IV Titration 340 Amount Piperacillin-Tazobactam 3 100 .375 gm In Sodium Chloride 0.9% 100 ml @ 25 mls/hr IVPB Q8H [facility] Rx#: [id number] Sodium Chloride 0.9% 1, 240 000 ml @ 20 mls/hr IV . Q24H [facility] Rx#:[id number] Oral 540 500 Output: Urine 1000 1000 Straight 1000 400 Other: Voiding Method Indwelling Catheter Indwelling Catheter Toilet Diaper - Labs CBC & Chem 7: 10/22/23 05:37 10/22/23 05:37 Labs: Microbiology - Last 24 Hours (Table) 10/20/23 12:35 Anaerobic Culture - Final Buttock
[2023-10-25] MEDS: HYDROcodone/APAP 7.5-325MG 1 EACH TAB PO PRN (15:11)
[2023-10-25] MEDS: METOPROLOL SUCCINATE (ER) 50 MG TAB.ER.24H PO SCH (23:36)
[2023-10-25] MEDS: ASPIRIN 81 MG PO SCH (23:36)
[2023-10-25] MEDS: LATANOPROST 0.005% OPHTH DROPS 2.5 ML BTL BOTH EYES SCH (23:37)
[2023-10-26] MEDS: SODIUM CHLORIDE 0.9% 1,000 ML IV SCH ×2 (02:19→11:27)
--- NOTE | 2023-10-26 08:04 | P.PN ---
Subjective Progress Note Date: 10/25/23 Principal diagnosis: Reason for follow-up is left perirectal abscess Patient is a 77-year-old male with a past medical history pertinent for hypertension [place] presenting to the ER for evaluation of perirectal pain, the patient CT was suggestive of left perirectal thickness and the patient did have drainage procedure done in the ER subsequently admitted to hospital for IV antibiotic therapy. Patient is status post surgical drainage of the left perirectal/perianal abscess completed on 10/20/2023 On today's evaluation there is 10/25/2023, the patient remains to be afebrile, the patient is breathing comfortably on room air and the patient denies any shortness of breath, the patient denies chest pain or any cough , patient denies any nausea/vomiting abdominal pain or diarrhea, Goldstein catheter has been discontinued however the patient has not voided Patient white count of 9.53, creatinine is 1.1 as of 10/22/2023 no lab draw today, cultures are currently pending Objective - Vital Signs Vital signs: Vital Signs Temp 97.4 F L 10/25/23 13:46 Pulse 66 10/25/23 13:46 Resp 18 10/25/23 13:46 BP 160/75 10/25/23 13:46 Pulse Ox 97 10/25/23 13:46 FiO2 Intake & Output 10/24/23 10/25/23 10/25/23 18:59 06:59 18:59 Intake Total 540 840 Output Total 1000 1000 500 Balance -460 -160 -500 Intake: Intake, IV Titration 340 Amount Piperacillin-Tazobactam 3 100 .375 gm In Sodium Chloride 0.9% 100 ml @ 25 mls/hr IVPB Q8H [facility] Rx#: [id number] Sodium Chloride 0.9% 1, 240 000 ml @ 20 mls/hr IV . Q24H [facility] Rx#:[id number] Oral 540 500 Output: Urine 1000 1000 500 Straight 1000 400 Other: Voiding Method Indwelling Catheter Indwelling Catheter Toilet Diaper - Exam GENERAL DESCRIPTION: An elderly male lying in bed in no distress RESPIRATORY SYSTEM: Unlabored breathing , decreased breath sounds at bases HEART: S1 S2 regular rate and rhythm , ABDOMEN: Soft , no tenderness EXTREMITIES: No edema feet - Labs CBC & Chem 7: 10/22/23 05:37 10/22/23 05:37 Labs: Microbiology - Last 24 Hours (Table) 10/20/23 12:35 Anaerobic Culture - Final Buttock Assessment and Plan (1) Perianal abscess Current Visit: Yes Status: Acute Code(s): K61.0 - ANAL ABSCESS SNOMED Code(s): 81128624 Plan: 1patient presented to hospital with perirectal pain started 2 days before presentation to the hospital in this patient did have elevated white count with abnormal CT abdominal pelvis soft tissue thickening to the left in the region of the perirectal area concerning for perirectal inflammation/abscess s/p drainage in the ER likely pathogen need to cover will be enteric gram-negative both aero bes and anaerobes 2patient did have a repeat CT of the pelvis completed with evidence of left perianal abscess, patient is status post surgical drainage of this abscess completed 10/20/2023 culture has been obtained which are currently pending 3patient currently covered with the Zosyn to continue for about a week on discharge along with local wound care Dictation was produced using [email or web address] dictation software. please excuse any grammatical, word or spelling errors. Time with Patient: Less than 30
[2023-10-26] MEDS: PIPERACILLIN-TAZOBACTAM 3.375 GM in SODIUM CHLORIDE 0.9% 100 ML IVPB SCH (08:14)
[2023-10-26] MEDS: SENNOSIDES 8.6 MG TAB PO SCH (08:15)
[2023-10-26] MEDS: TAMSULOSIN 0.4 MG CAP.ER.24H PO SCH (08:15)
[2023-10-26] MEDS: HEPARIN SODIUM,PORCINE 5,000 UNIT/ML 1 ML VIAL SQ SCH (08:15)
[2023-10-26 08:25] VITALS: RESP 18
[2023-10-26 09:36] LABS: Basophils % (A) 0 %; Eosinophils # (A) 0.5 k/uL (0-0.7); Eosinophils % (A) 5 %; HCT 42.2 % (39.0-53.0); HGB 13.6 gm/dL (13.0-17.5); Lymphocytes % (A) 21 %; MCH 29.7 pg (25.0-35.0); MCHC 32.3 g/dL (31.0-37.0); MCV 92.1 fL (80.0-100.0); Mean Platelet Volume 8.4; Monocytes # (A) 0.5 k/uL (0-1.0); Monocytes % (A) 5 %; Neutrophils # (A) 6.3 k/uL (1.3-7.7); Neutrophils % (A) 67 %; Platelet Count 276 k/uL (150-450); RBC 4.59 m/uL (4.30-5.90); RDW 13.1 % (11.5-15.5); WBC 9.4 k/uL (3.8-10.6)
[2023-10-26 11:14] LABS: ALT 29 U/L (4-49); AST 31 U/L (17-59); African American GFR (CKD) 84 (>60 ml/min/1.73 sqM); Albumin 3.6 g/dL (3.5-5.0); Albumin/Globulin Ratio 1.4; Alkaline Phosphatase 55 U/L (38-126); Anion Gap 8 mmol/L; Blood Urea Nitrogen 7 mg/dL (9-20); Calcium 8.8 mg/dL (8.4-10.2); Carbon Dioxide 22 mmol/L (22-30); Chloride 110 mmol/L (98-107); Globulin 2.6 g/dL; Glucose 143 mg/dL (74-99); Non-African American GFR(CKD) 73 (>60 ml/min/1.73 sqM); Potassium 4.2 mmol/L (3.5-5.1); Sodium 140 mmol/L (137-145); Total Bilirubin 0.6 mg/dL (0.2-1.3); Total Protein 6.2 g/dL (6.3-8.2)
[2023-10-26] MEDS: LUBIPROSTONE 24 MCG PO SCH (11:27)
[2023-10-26] MEDS: LOSARTAN 50 MG TAB PO SCH (12:03)
[2023-10-26] MEDS: busPIRone HCl 10 MG TAB PO SCH (12:03)
[2023-10-26] MEDS: ATORVASTATIN 10 MG TAB PO SCH (12:03)
[2023-10-26] MEDS: PANTOPRAZOLE 40 MG TABLET PO SCH (12:03)
[2023-10-26] MEDS: DORZOLAMIDE HCL 2% DROPS 10 ML BTL RIGHT EYE SCH (12:03)
--- NOTE | 2023-10-26 12:11 | P.DS ---
Providers Date of admission: 10/16/23 01:08 Expected date of discharge: 10/26/23 Attending physician: Tomy Pereira MD Consults: 10/16/23 00:16 Consult Physician Urgent Consulting Provider: Brian Kunz Consult Reason/Comments: Perianal abscess Do you want consulting provider notified?: Yes 10/17/23 08:41 Consult Physician Routine Consulting Provider: Kath Powell Consult Reason/Comments: perianal abscess Do you want consulting provider notified?: Yes 10/23/23 09:43 Consult Physician Routine Consulting Provider: Tomi Moore Consult Reason/Comments: urinary retention Do you want consulting provider notified?: Yes Primary care physician: Stated None Hospital Course: Discharge Diagnosis: Sepsis secondary to perirectal abscess with cellulitis Acute urinary retention Hypertension CAD status post CABG Lipidemia History of CVA Hospital Course: 77-year-old male with history of CVA, CAD status post CABG, hypertension, IBS presenting with rectal bleeding. On presentation, patient was tachycardic, WBC 18.3, bicarb 20, total bili 1.5, troponin negative, lactate 1.2, urinalysis negative, EKG sinus rhythm, CT abdomen and pelvis showed perianal cellulitis. Patient admitted for perirectal cellulitis, sepsis. Started on IV antibiotics. Gen. surgery was consulted. Now status post I&D. ID also consulted. Patient also having urinary retention, status post Goldstein catheter, which is now discontinued. Patient started on tamsulosin. Being discharged to nursing facility for IV antibiotics for 7 days. Patient seen and examined at bedside. Vital signs reviewed and stable. General: nontoxic, no distress, appears at stated age Derm: warm, dry Head: atraumatic, normocephalic, symmetric Eyes: EOMI, no lid lag, anicteric sclera Mouth: no lip lesion, mucus membranes moist Cardiovascular: S1S2 reg, no murmur Lungs: CTA bilateral, no rhonchi, no rales , no accessory muscle use Abdominal: soft, nontender to palpation, no guarding, no appreciable organomegaly Ext: no gross muscle atrophy, no edema, no contractures Neuro: CN II-XI grossly intact, no focal neuro deficits Psych: Alert, oriented, appropriate affect A total of 33 minutes of time were spent preparing this complex discharge summary. Patient was discharged on 10/26/23 at 1139. Patient Condition at Discharge: Stable Plan - Discharge Summary New Discharge Prescriptions: New Tamsulosin [Flomax] 0.4 mg PO PC-BRKFST cap Sennosides [Senokot] 8.6 mg PO DAILY tab Piperacillin-Tazobactam [Zosyn] 3.375 gm IVPB Q8H 7 Days day Acetaminophen Tab [Tylenol] 650 mg PO Q6HR PRN tab PRN Reason: Mild Pain Or Fever > 100.5 Continue busPIRone HCl [Buspar] 10 mg PO TID@0000,1200,1800 Omeprazole [PriLOSEC] 20 mg PO BID@1200,0000 Dorzolamide 2% [Trusopt 2%] 1 drop RIGHT EYE BID@0000,1200 Latanoprost [Latanoprost 0.005%] 1 drop BOTH EYES DAILY@0000 Lubiprostone [Amitiza] 24 mcg PO BID@0000,1200 bisacodyL [Dulcolax] 10 mg PO DAILY@0000 Rosuvastatin [Crestor] 5 mg PO DAILY@1200 Losartan [Cozaar] 50 mg PO DAILY@1200 Simethicone 40 mg/0.6 ml Drops [Mylicon Drops] 40 mg PO QID PRN PRN Reason: gas relief Clopidogrel [Plavix] 75 mg PO DAILY@0000 Metoprolol Succinate (ER) [Toprol XL] 50 mg PO DAILY@0000 Aspirin EC [Ecotrin Low Dose] 81 mg PO DAILY@0000 Discharge Medication List Aspirin EC [Ecotrin Low Dose] 81 mg PO DAILY@10/16/23 [History] Clopidogrel [Plavix] 75 mg PO DAILY@10/16/23 [History] Dorzolamide 2% [Trusopt 2%] 1 drop RIGHT EYE BID@0000,1200 10/16/23 [History] Latanoprost [Latanoprost 0.005%] 1 drop BOTH EYES DAILY@10/16/23 [History] Losartan [Cozaar] 50 mg PO DAILY@119910/16/23 [History] Lubiprostone [Amitiza] 24 mcg PO BID@0000,1200 10/16/23 [History] Metoprolol Succinate (ER) [Toprol XL] 50 mg PO DAILY@10/16/23 [History] Omeprazole [PriLOSEC] 20 mg PO BID@1200,0000 10/16/23 [History] Rosuvastatin [Crestor] 5 mg PO DAILY@1200 10/16/23 [History] Simethicone 40 mg/0.6 ml Drops [Mylicon Drops] 40 mg PO QID PRN 10/16/23 [History] bisacodyL [Dulcolax] 10 mg PO DAILY@0000 10/16/23 [History] busPIRone HCl [Buspar] 10 mg PO TID@0000,1200,1800 10/16/23 [History] Acetaminophen Tab [Tylenol] 650 mg PO Q6HR PRN tab 10/26/23 [Rx] Piperacillin-Tazobactam [Zosyn] 3.375 gm IVPB Q8H 7 Days day 10/26/23 [Rx] Sennosides [Senokot] 8.6 mg PO DAILY tab 10/26/23 [Rx] Tamsulosin [Flomax] 0.4 mg PO PC-BRKFST cap 10/26/23 [Rx] Follow up Appointment(s)/Referral(s): None,Stated [Primary Care Provider] - 1-2 days (Please call a primary care provider for follow-up appointment.) Brian Kunz MD [STAFF PHYSICIAN] - 11/03/23 4:00 pm Patient Instructions/Handouts: Rectal Abscess (DC) Activity/Diet/Wound Care/Special Instructions: Please see surgery and PCP. Discharge Disposition: TRANSFER TO SNF/ECF
--- NOTE | 2023-10-26 13:23 | P.PN ---
Subjective Progress Note Date: 10/26/23 CHIEF COMPLAINT: Perianal abscess HISTORY OF PRESENT ILLNESS: Patient is postop day #6 status post incision and drainage of left perirectal abscess. Pain is controlled. Drainage is still serosanguineous. Afebrile. WBC 9.4 HGB 13.6 PHYSICAL EXAM: VITAL SIGNS: Reviewed. GENERAL: Well-developed in no acute distress. ABDOMEN: Soft. Nondistended. Nontender. Rectum: Incision noted along the left side of the rectum with packing. Drainage serosanguineous. Less tender with palpation. ASSESSMENT: 1. Perirectal abscess. Status post incision and drainage PLAN: -Patient can be discharged from surgical standpoint -Discharge antibiotics per ID service -Continue daily showers -Continue local wound care -Continue pain management Physician Medicare Nurse note has been reviewed by physician. Signing provider agrees with the documented findings, assessment, and plan of care. Objective - Vital Signs Vital signs: Vital Signs Temp 97.8 F 10/26/23 07:45 Pulse 65 10/26/23 07:45 Resp 18 10/26/23 07:45 BP 157/81 10/26/23 07:45 Pulse Ox 97 10/26/23 07:45 FiO2 Intake & Output 10/25/23 10/26/23 10/26/23 18:59 06:59 18:59 Intake Total 740 940 Output Total 500 1000 Balance 240 -60 Intake: Intake, IV Titration 340 Amount Piperacillin-Tazobactam 3 100 .375 gm In Sodium Chloride 0.9% 100 ml @ 25 mls/hr IVPB Q8H [facility] Rx#: [id number] Sodium Chloride 0.9% 1, 240 000 ml @ 20 mls/hr IV . Q24H [facility] Rx#:[id number] Oral 740 600 Output: Urine 500 1000 Other: Voiding Method Toilet Toilet Toilet Diaper Diaper Diaper - Labs CBC & Chem 7: 10/26/23 09:04 10/26/23 09:04 Labs: Abnormal Lab Results - Last 24 Hours (Table) 10/26/23 Range/Units 09:04 Chloride 110 H (98-107) mmol/L BUN 7 L (9-20) mg/dL Glucose 143 H (74-99) mg/dL C-Reactive Protein 1.0 H (<1.0) mg/dL Total Protein 6.2 L (6.3-8.2) g/dL
[2023-10-26] MEDS: HYDROcodone/APAP 7.5-325MG 1 EACH TAB PO PRN (13:52)
[2023-10-26 16:48] VITALS: BP 149/66; PULSE 67; TEMP 98.3
== END 2023-10-26 16:34 | DRG 854 ==
LOC: EC 16:14 → 5NMEDONC 10-16 01:08
PROVIDERS: ADMIT Internal Medicine; ATTEND Internal Medicine
PROC: 0D9P3ZZ Drainage of Rectum, Percutaneous Approach (ICD-10-PCS; 2023-10-20)
PROC: 0D9Q0ZZ Drainage of Anus, Open Approach (ICD-10-PCS; principal; 2023-10-20 11:50)
PROC: 05HC33Z Insertion of Infusion Device into Left Basilic Vein, Percutaneous Approach (ICD-10-PCS; 2023-10-23)
DX: A41.9 Sepsis, unspecified organism (principal); K61.2 Anorectal abscess; I10 Essential (primary) hypertension; R33.9 Retention of urine, unspecified; E78.5 Hyperlipidemia, unspecified; K58.1 Irritable bowel syndrome with constipation; I25.10 Atherosclerotic heart disease of native coronary artery without angina pectoris; Z88.8 Allergy status to other drugs, medicaments and biological substances; Z95.1 Presence of aortocoronary bypass graft; I25.2 Old myocardial infarction; Z79.899 Other long term (current) drug therapy; Z79.02 Long term (current) use of antithrombotics/antiplatelets; Z79.82 Long term (current) use of aspirin; Z86.73 Personal history of transient ischemic attack (TIA), and cerebral infarction without residual deficits
CPT/HCPCS: 10060; 36410; 36415; 72193; 74177; 76937; 80048; 80053; 81001; 83605; 84484; 85025; 85027; 85610; 85730; 86140; 87040; 87070; 87075; 87205; 90471; 90715; 93005; 96361; 96374; 96375; 99285